=== PATIENT | female | born 1940 | race Two or more races ===

== ENCOUNTER 2016-05-10 10:50 | Emergency (ER) | payer BC, MEDICARE ==
[~2016-05-10] VITALS: Ht 157.5 cm; Wt 61.7 kg
[~2016-05-10 10:50] MED LIST: HYDR-2666 PO; ONDA4TAB10 SL; PROM25TA10 PO; TRAZ50TA15 PO; ZOLP5TAB PO
[2016-05-10 11:09] VITALS: BP 165/107
[2016-05-10] MEDS: ONDANSETRON ODT 4 MG TAB.RAPDIS PO ONE (11:30)
[2016-05-10] MEDS: OXYCODONE/APAP 10/325 TABLET. PO ONE (11:32)
--- NOTE | 2016-05-10 11:53 | RAD ---
Thoracic spine, 3 views, 05/10/2016: History: Fall, pain Comparison is made to a study from 01/05/2015. The bony structures are demineralized. Mild anterior wedging of the T7 vertebral body is unchanged since 01/05/2015. The other thoracic vertebral heights are well-maintained. There is a mild L1 vertebral compression fracture which is new. There are mild scattered marginal spurs. There is aortic atherosclerosis and ectasia. IMPRESSION: 1. Demineralization. 2. Old mild T7 vertebral compression fracture 3. Mild scattered degenerative changes. Lumbar spine, 3 views, 05/10/2016: The bony structures are demineralized. There is a mild L1 vertebral compression fracture which was not present on 01/05/2015. The other lumbar vertebral heights are well-maintained. There is moderate disc space narrowing with a vacuum disc phenomena, endplate sclerosis and marginal spurring at L3-4. There are mild spurs at other scattered disc levels. There are moderate degenerative changes involving the facet joints in the lower lumbar spine. IMPRESSION: 1. Moderate multilevel degenerative change. 2. New mild L1 vertebral compression fracture.
--- NOTE | 2016-05-10 12:10 | RAD ---
Pelvis with both hips, 5 views, 05/10/2016: History: Fall, pain The bony structures are demineralized. No fracture or dislocation is identified. The hip joint spaces are well preserved with only mild marginal spurring. The urinary bladder appears distended. IMPRESSION: 1. Demineralization. 2. No acute bony abnormality is detected.
[2016-05-10] MEDS ORDERED: HYDR-971 PO (12:23)
--- NOTE | 2016-05-10 12:25 | PHYS DOC ---
General Chief Complaint: BACK PAIN OR INJURY Stated Complaint: BACK PAIN Time Seen by MD: 10:54 Source: patient, EMS Exam Limitations: no limitations Problems: History of Present Illness Initial Comments Pt is 75/F to ED via EMS with back pain from fall. Pt states that approx 0400 today she was sleepwalking and fell after walking into a dresser. A 20" flat screen monitor also fell with pt. She c/o upper and lower back pain, no leg/bowel/bladder symptoms, no saddle anesthesia. Pt has chronic back pain and is out of her medications. No prearrival treatment, pain described as severe, worse with movement better with rest. No head trauma/ LOC/SANTO/neck pain. Occurred: this morning Severity: moderate Injuries/Pain Location: back Context: slipped, other Loss of Consciousness: no loss of consciousness Modifying Factors: worse with jarring, worse with movement, improves with rest Associated Symptoms: other Allergies: Coded Allergies: No Known Drug Allergies (Unverified , 10/24/13) Past Medical History Medical History: other (anxiety, depression, HTN, chronic back pain) Surgical History: noncontributory Social History Smoker: non-smoker Alcohol: none Drugs: none Review of Systems Constitutional: denies chills, denies fever, denies malaise Respiratory: denies cough, denies shortness of breath Cardiovascular: denies chest pain, denies palpitations Gastrointestinal: denies diarrhea, denies nausea, denies vomiting Genitourinary: denies dysuria, denies frequency, denies hematuria Musculoskeletal: see HPI Psychiatric/Neurological: denies headache, denies numbness, denies paresthesia , denies tingling, denies weakness Physical Exam General Appearance: WD/WN, no apparent distress Head: no evidence of injury Eyes: bilateral eye EOMI, bilateral eye PERRL, bilateral eye normal inspection Ears, Nose, Mouth, Throat: hearing grossly normal, no evidence of ENT injury, no dental injury Neck: non-tender, full range of motion Cardiovascular/Respiratory: normal peripheral pulses, no respiratory distress Back: no CVA tenderness, decreased range of motion, muscle spasm, vertebral tenderness (upper lumbar, upper thoracic no swell/ecchy) Extremities: normal range of motion, non-tender 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 No hip/pelvis fx. Pt resting comfortably with meds, expressed agreement/understanding with treatment plan. Departure Time of Disposition: 12:23 Disposition: 01 HOME, SELF-CARE Diagnosis: L1 Compression Fracture, mechanical fall Condition: GOOD Patient Instructions: Back, Compression Fracture, Fall Prevention and Home Safety, [id number] Additional Instructions: Rest, no strenuous activity. Ice to painful area 20 minutes, 4-6 times daily for two days. OTC ibuprofen for baseline pain. Rx: norco 5mg #30 Take OTC stool softeners and increase fluid intake to avoid constipation with pain medications. Follow up with your doctor Sunday for recheck. Return to ED with new or changing symptoms. YANIRA MENA DO May 10, 2016 12:25
== END 2016-05-10 13:20 | disposition home or self-care (01) ==
LOC: ER 10:50
DX: S32.010A Wedge compression fracture of first lumbar vertebra, initial encounter for closed fracture (principal); G89.29 Other chronic pain; I10 Essential (primary) hypertension; W20.8XXA Other cause of strike by thrown, projected or falling object, initial encounter; Y93.01 Activity, walking, marching and hiking; Y99.8 Other external cause status; Y92.89 Other specified places as the place of occurrence of the external cause
CPT/HCPCS: 72072; 72100; 73521; 99284; Q0162

== ENCOUNTER 2017-03-02 10:39 | Emergency (ER) | payer MEDICARE, OTHER ==
[~2017-03-02] VITALS: Ht 157.5 cm; Wt 54.4 kg
[~2017-03-02 10:39] MED LIST changes: -HYDR-2666 PO; +HYDR-2758 PO; +HYDR-971 PO
[2017-03-02 10:45] VITALS: BP 165/98
[2017-03-02 11:13] LABS: BASO % 1 % (0-3); EOS # 0.5 x10^3/uL (0.0-0.7); EOS % 8 % (0-3); HEMOGLOBIN 14.3 g/dL (12.0-15.5); LYMPH # 1.6 x10^3/uL (1.0-4.8); LYMPH % 29 % (24-48); MEAN CORPUSCULAR HEMOGLOBIN 33 pg (25-35); MEAN CORPUSCULAR HGB CONC 34 g/dL (31-37); MEAN CORPUSCULAR VOLUME 96 fL (79-100); MONO # 0.3 x10^3/uL (0.0-1.1); MONO % 5 % (0-9); NEUT # 3.2 x10^3uL (1.8-7.7); NEUT % 57 % (31-73); PLATELET COUNT 247 x10^3/uL (140-400); RED CELL DISTRIBUTION WIDTH 13.8 % (11.5-14.5); WHITE BLOOD COUNT 5.6 x10^3/uL (4.0-11.0)
--- NOTE | 2017-03-02 11:19 | RAD ---
CT of the head without contrast, 03/02/2017: History: Altered mental status, accidental overdose Comparison is made to a study from 08/22/2010. There is mild cerebral atrophy. The ventricles are within normal limits in size. There is no shift of the midline structures. There is no evidence of acute intracranial hemorrhage or mass effect. Moderate basal ganglia calcifications are again noted bilaterally. There is partial opacification of both ethmoid sinuses. IMPRESSION: No acute intracranial abnormality is detected. PQRS Compliance Statement: One or more of the following individualized dose reduction techniques were utilized for this examination: 1. Automated exposure control 2. Adjustment of the mA and/or kV according to patient size 3. Use of iterative reconstruction technique
--- NOTE | 2017-03-02 11:25 | RAD ---
Portable chest, 03/02/2017: History: Altered mental status, extending overdose Comparison is made to a study from 01/05/2015. Surgical clips overlie the left lower chest. The heart size and pulmonary vascularity are normal. There is ectasia of the thoracic aorta. There is a 12 mm nodule projected over left upper lobe. It has shown no definite change since 01/05/2015, although comparison of the current AP exam with the previous PA study is not entirely accurate. It is larger than on a prior exam from 2011. There are prominent pulmonary markings laterally in the right lung, apparently due to bronchiectasis and fibrosis evident on a CT exam from 01/26/2010. No pleural fluid is evident. There are internal fixation devices in the right humerus. IMPRESSION: 1. Aortic atherosclerosis and ectasia. 2. Mild bronchiectasis and scarring laterally in the right lung. 3. Left upper lobe pulmonary nodule which has increased in size since 2011.
[2017-03-02] MEDS ORDERED: ONDANSETRON PF 4 MG/2 ML VIAL. IV ONE (11:30)
--- NOTE | 2017-03-02 11:33 | PHYS DOC ---
General Chief Complaint: OVERDOSE Stated Complaint: O.D. Time Seen by MD: 10:50 Source: patient, family, RN/MD, EMS Exam Limitations: no limitations Problems: History of Present Illness Initial Comments Patient is a 76-year-old female brought to the ED by EMS after her PCP called noting the patient appeared to have altered mental status and possible stroke symptoms. EMS reports that on arrival they found the patient to be drowsy but otherwise neurologically intact. They found prescription medication bottles, a Lortab prescription dated February 14 had 5 tablets remaining, quantity 120 tablets. Patient has also run out of trazodone and Ambien 2 weeks early according to the patient's own report. The patient reportedly lives with her son who has been hospitalized for the past 2 days and the second sound has been helping. Due to the patient's persistent complains of whole body pain requesting pain medications and the potential for overdose the patient was brought to the ED for evaluation. ED vital signs stable on arrival, I am familiar with the patient I have seen her here in the past with suspicions of drug seeking behavior. Due to the PCPs concerns full workup initiated and pending. Timing/Duration: unsure Severity: moderate Modifying Factors: worse with medication Associated Symptoms: other Allergies: Coded Allergies: No Known Drug Allergies (Unverified , 10/24/13) Past Medical History Medical History: other (anxiety, depression, hypertension, chronic pain, drug- seeking behavior, prescription medication abuse, opiate dependence and addiction ) Surgical History: other (right humerus fracture) Social History Smoker: non-smoker Alcohol: none Drugs: none Review of Systems Constitutional: denies chills, denies fever, malaise Respiratory: denies cough, denies shortness of breath, denies wheezing Cardiovascular: denies chest pain, denies palpitations, denies syncope Gastrointestinal: denies diarrhea, denies nausea, denies vomiting Musculoskeletal: see HPI Psychiatric/Neurological: see HPI Physical Exam General Appearance: WD/WN, no apparent distress Eyes: bilateral eye normal inspection, bilateral eye PERRL, bilateral eye EOMI Ear, Nose, Throat: hearing grossly normal, normal ENT inspection, normal pharynx Neck: non-tender, supple Respiratory: chest non-tender, normal breath sounds, no respiratory distress Cardiovascular: normal peripheral pulses, regular rate, rhythm Gastrointestinal: non tender, soft Back: no CVA tenderness, no vertebral tenderness 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 Interpreted by me. PATIENT: ANASTACIA RIVERA ACCOUNT: [id number] : 1940 LOCATION: ER AGE: 76 SEX: F EXAM STATUS: REG ER ORD. PHYSICIAN: YANIRA MENA DO REASON: AMS PROCEDURE: PORTABLE CHEST 1V Portable chest, 03/02/2017: History: Altered mental status, extending overdose Comparison is made to a study from 01/05/2015. Surgical clips overlie the left lower chest. The heart size and pulmonary vascularity are normal. There is ectasia of the thoracic aorta. There is a 12 mm nodule projected over left upper lobe. It has shown no definite change since 01/05/2015, although comparison of the current AP exam with the previous PA study is not entirely accurate. It is larger than on a prior exam from 2011. There are prominent pulmonary markings laterally in the right lung, apparently due to bronchiectasis and fibrosis evident on a CT exam from 01/26/2010. No pleural fluid is evident. There are internal fixation devices in the right humerus. IMPRESSION: 1. Aortic atherosclerosis and ectasia. 2. Mild bronchiectasis and scarring laterally in the right lung. 3. Left upper lobe pulmonary nodule which has increased in size since 2011. DICTATED AND SIGNED BY: LOIS FERREIRA MD DATE: 03/02/17 1116 CC: YANIRA MENA DO; CHRISTINE RYAN MD ~ PATIENT: ANASTACIA RIVERA ACCOUNT: [id number] : 1940 LOCATION: ER AGE: 76 SEX: F EXAM STATUS: REG ER ORD. PHYSICIAN: YANIRA MENA DO REASON: AMS PROCEDURE: CT HEAD WO CONTRAST CT of the head without contrast, 03/02/2017: History: Altered mental status, accidental overdose Comparison is made to a study from 08/22/2010. There is mild cerebral atrophy. The ventricles are within normal limits in size. There is no shift of the midline structures. There is no evidence of acute intracranial hemorrhage or mass effect. Moderate basal ganglia calcifications are again noted bilaterally. There is partial opacification of both ethmoid sinuses. IMPRESSION: No acute intracranial abnormality is detected. PQRS Compliance Statement: One or more of the following individualized dose reduction techniques were utilized for this examination: 1. Automated exposure control 2. Adjustment of the mA and/or kV according to patient size 3. Use of iterative reconstruction technique DICTATED AND SIGNED BY: LOIS FERREIRA MD DATE: 03/02/17 1114 CC: YANIRA MENA DO; CHRISTINE RYAN MD ~ 1226: I discussed the patient PCP Dr. Ryan over the phone at her request. After thorough discussion including the fact that the patient had been out of trazodone and Ambien for the past 2 weeks and that 115 of 120 Lortabs had been taken since February 14 Dr. Ryan states that this has been an ongoing issue for the past 3 years. He is in agreement that the patient is stable for discharge home and requests that I advised her she will need to follow-up with him weekly to obtain one week's quantity of medications only each week. He asked that she call and make an appointment later today for an appointment next week. I discussed this with the patient and she did express agreement and understanding. She did continue to ask for a prescription for sleeping pills which I respectfully declined. I advised her to seek help for her addictions and to follow-up with her PCP regarding the lung nodule. Departure Time of Disposition: 12:22 Disposition: 01 HOME, SELF-CARE Diagnosis: noncompliance w/meds, UTI, prescription addic Condition: STABLE Patient Instructions: Drug Abuse and Addiction-[facility] Additional Instructions: Call today to schedule an appointment to see Dr. Ryan next week. Take medications only as prescribed. As discussed you will need to see him weekly to obtain one week's quantity of medications. Prescription: Cephalexin Follow-up with Dr. Ryan next week. Return to ED with new or changing symptoms. YANIRA MENA DO Mar 02, 2017 11:33
[2017-03-02 11:39] LABS: ALBUMIN 4.4 g/dL (3.4-5.0); ALK PHOS 73 U/L (46-116); ALT (SGPT) 15 U/L (14-59); ANION GAP 14 (6-14); AST (SGOT) 18 U/L (15-37); BLOOD UREA NITROGEN 13 mg/dL (7-20); CALCIUM 9.4 mg/dL (8.5-10.1); CARBON DIOXIDE 27 mmol/L (21-32); CHLORIDE 103 mmol/L (98-107); CREATININE 0.6 mg/dL (0.6-1.0); DIRECT BILIRUBIN 0.2 mg/dL (0.0-0.2); GFR 97.7; GLUCOSE 106 mg/dL (70-99); MAGNESIUM 2.3 mg/dL (1.8-2.4); POTASSIUM 3.7 mmol/L (3.5-5.1); SODIUM 144 mmol/L (136-145); TOTAL BILIRUBIN 0.8 mg/dL (0.2-1.0); TOTAL PROTEIN 8.1 g/dL (6.4-8.2)
--- NOTE | 2017-03-02 11:39 | EKG ---
[address] [address] Test Date: 2017-03-02 Test Time: 11:34:56 Pat Name: ANASTACIA RIVERA Department: Room: Gender: F Manager Metrology: AZIZA : 1940 Requested By: YANIRA MENA Order Number: [id number] Reading MD: Measurements Intervals [place] Rate: 73 P: 17 [place]: 194 QRS: -19 QRSD: 86 T: 10 QT: 432 QTc: 480 Interpretive Statements SINUS RHYTHM LEFTWARD AXIS T ABNORMALITY IN ANTERIOR LEADS PROLONGED QT ABNORMAL ECG RI6.01 Unconfirmed report No previous ECG available for comparison
[2017-03-02 11:43] LABS: BARBITURATES NEG (NEG); BENZODIAZEPINES NEG (NEG); CANNABINOIDS NEG (NEG); COCAINE NEG (NEG); METHADONE NEG (NEG); OPIATES POS (NEG); PHENCYCLIDINE NEG (NEG)
[2017-03-02 11:46] LABS: C REACTIVE PROTEIN < 0.5 mg/L (0-3.3)
[2017-03-02 11:47] LABS: ACETAMIN < 2.0 mcg/mL (10-30); ETHANOL < 10 mg/dL (0-10); SALIC 0.7 mg/dL (2.8-20.0)
[2017-03-02 11:48] LABS: BACTERIA,URINE FEW /HPF (0-FEW); BILIRUBIN,URINE NEG (NEG); CLARITY,URINE HAZY; COLOR,URINE YELLOW; GLUCOSE,URINE NEG (NEG); NITRITE,URINE NEG (NEG); RBC,URINE RARE /HPF (0-2); SQUAMOUS EPITHELIAL CELL,UR FEW /LPF; UROBILINOGEN,URINE 0.2 mg/dL (0.2 mg/dL)
[2017-03-02 11:49] LABS: AMPHETAMINE/METHAMPHETAMINE NEG (NEG)
[2017-03-02] MEDS ORDERED: CEPH500C PO (12:28)
== END 2017-03-02 12:38 | disposition home or self-care (01) ==
LOC: ER 10:39
DX: F11.20 Opioid dependence, uncomplicated (principal); F19.20 Other psychoactive substance dependence, uncomplicated; F13.20 Sedative, hypnotic or anxiolytic dependence, uncomplicated; T40.2X5A Adverse effect of other opioids, initial encounter; T42.75XA Adverse effect of unspecified antiepileptic and sedative-hypnotic drugs, initial encounter; Z91.14 Patient's other noncompliance with medication regimen; N39.0 Urinary tract infection, site not specified; F41.9 Anxiety disorder, unspecified; G89.29 Other chronic pain; F31.9 Bipolar disorder, unspecified; Z76.5 Malingerer [conscious simulation]; Y92.89 Other specified places as the place of occurrence of the external cause
CPT/HCPCS: 36415; 70450; 71045; 80048; 80076; 80307; 81001; 83605; 83735; 85025; 85610; 85730; 86140; 87086; 93005; 96374; G0480; J2405; 99285-25; G0479

== ENCOUNTER 2017-03-13 17:10 | Inpatient (IN) | payer MEDICARE, OTHER ==
[~2017-03-13] VITALS: Ht 157.5 cm; Wt 51.5 kg
[~2017-03-13 17:10] MED LIST changes: +CEPH500C PO
--- NOTE | 2017-03-13 18:12 | PHYS DOC ---
Past History Past Medical History: Other Additional Past Medical Histor: anxiety, depression, hypertension, chronic pain , drug-seeking behavior Past Surgical History: Other Additional Past Surgical Histo: right humerus fracture Smoking: Non-smoker Alcohol Use: None Drug Use: None Adult General Chief Complaint Chief Complaint: medical clearance for psych placement [facility] 76-year-old female patient brought in by family members because of depression and needs for [facility]. Patient lost her 49-year- old son last week and was very depressed according to family member. Patient's son states she refused to eat and take her medication. Patient refused to her son when he was sick Hospital and at his . Patient was seen by his primary care physician Dr. Mead and evaluated at [place] emergency room and her primary care physician decided to send patient to this emergency room for psychiatric admission. Patient states she is hurting all over for 2 years and not feeding good and when she doesn't feel good she wished to but she does not have any plan to kill herself. She denies homicidal ideation and hallucination and history of previous suicidal attempt. Review of Systems Review of Systems Constitutional: Denies fever or chills [] Eyes: Denies change in visual acuity, redness, or eye pain [] HENT: Denies nasal congestion or sore throat [] Respiratory: Denies cough or shortness of breath [] Cardiovascular: No additional information not addressed in [facility] [] GI: Denies abdominal pain, nausea, vomiting, bloody stools or diarrhea [] : Denies dysuria or hematuria [] Musculoskeletal: Denies back pain or joint pain [, hurting all over] Integument: Denies rash or skin lesions [] Neurologic: Denies headache, focal weakness or sensory changes [] Endocrine: Denies polyuria or polydipsia [] All other systems were reviewed and found to be within normal limits, except as documented in this note. Allergies Allergies Allergies Coded Allergies Type Severity Reaction Last Updated Verified No Known Drug Allergies 10/24/13 No Physical Exam Physical Exam Constitutional: Well developed, well nourished,mild distress, non-toxic appearance, depressed. [] HENT: Normocephalic, atraumatic, bilateral external ears normal, oropharynx moist, no oral exudates, nose normal. [] Eyes: PERRLA, EOMI, conjunctiva normal, no discharge. [] Neck: Normal range of motion, no tenderness, supple, no stridor. [] Cardiovascular:Heart rate regular rhythm, no murmur [] Lungs & Thorax: Bilateral breath sounds clear to auscultation [] Abdomen: Bowel sounds normal, soft, no tenderness, no masses, no pulsatile masses. [] Skin: Warm, dry, no erythema, no rash. [] Back: No tenderness, no CVA tenderness. [] Extremities: No tenderness, no cyanosis, no clubbing, ROM intact, no edema. [] Neurologic: Alert and oriented X 3, normal motor function, normal sensory function, no focal deficits noted. [] Psychologic: Depressed, judgment normal, avoid of eye contact, no suicidal or homicidal ideation Current Patient Data Vital Signs Vital Signs Date Time Temp Pulse Resp B/P (MAP) Pulse Ox O2 Delivery O2 Flow Rate FiO2 03/13/17 17:30 98.3 74 18 99 Room Air EKG EKG [EKG interpreted by me. EKG at 1810 showed multiple artifact with shaking left axis deviation, left anterior fascicular block, nonspecific T-wave abnormality in anterior leads Radiology/Procedures Radiology/Procedures [] Course & Med Decision Making Course & Med Decision Making Pertinent Labs reviewed. (See chart for details) Evaluation of patient in ER showed 76-year-old female patient brought in to ER by family members because of depression after of her son for medical clearance for psychiatric admission. Patient had unremarkable physical exam except for depression and avoiding of eye contact. Labs showed potassium of 3.0 and mild UTI and patient treated with oral potassium on Bactrim in ER. Patient was evaluated by psychiatric relocation director Dr. Willis and she called at 2133 and a stick patient is inpatient treatment for depression. Plan to [facility]. Dragon Disclaimer Dragon Disclaimer This electronic medical record was generated, in whole or in part, using a voice recognition dictation system. Departure Departure: Impression: Primary Impression: Medical clearance for psychiatric admission Additional Impressions: Depression Hypokalemia UTI (urinary tract infection) Disposition: 09 ADMITTED INPATIENT (At 2134) Condition: IMPROVED Referrals: CHRISTINE MEAD MD (PCP) Problem Qualifiers ANDI ROCHA MD Mar 13, 2017 18:12
--- NOTE | 2017-03-13 18:19 | EKG ---
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
[2017-03-13 19:41] LABS: BASO % 0 % (0-3); EOS # 0.2 x10^3/uL (0.0-0.7); EOS % 3 % (0-3); HEMATOCRIT 42.2 % (36.0-47.0); HEMOGLOBIN 14.4 g/dL (12.0-15.5); LYMPH # 2.2 x10^3/uL (1.0-4.8); LYMPH % 33 % (24-48); MEAN CORPUSCULAR HEMOGLOBIN 32 pg (25-35); MEAN CORPUSCULAR HGB CONC 34 g/dL (31-37); MEAN CORPUSCULAR VOLUME 95 fL (79-100); MONO # 0.5 x10^3/uL (0.0-1.1); MONO % 7 % (0-9); NEUT # 3.9 x10^3uL (1.8-7.7); NEUT % 57 % (31-73); PLATELET COUNT 222 x10^3/uL (140-400); RED BLOOD COUNT 4.45 x10^6/uL (3.50-5.40); RED CELL DISTRIBUTION WIDTH 13.8 % (11.5-14.5); WHITE BLOOD COUNT 6.8 x10^3/uL (4.0-11.0)
[2017-03-13 19:56] LABS: BARBITURATES NEG (NEG); BENZODIAZEPINES NEG (NEG); CANNABINOIDS NEG (NEG); COCAINE NEG (NEG); METHADONE NEG (NEG); OPIATES NEG (NEG); PHENCYCLIDINE NEG (NEG)
[2017-03-13 20:02] LABS: ALBUMIN 4.3 g/dL (3.4-5.0); ALBUMIN/GLOBULIN RATIO 1.1 (1.0-1.7); AMPHETAMINE/METHAMPHETAMINE NEG (NEG); CALCIUM 9.5 mg/dL (8.5-10.1); CREATININE 0.8 mg/dL (0.6-1.0); GFR 70.1; MAGNESIUM 2.1 mg/dL (1.8-2.4); TOTAL BILIRUBIN 0.5 mg/dL (0.2-1.0); TOTAL PROTEIN 8.2 g/dL (6.4-8.2)
[2017-03-13 20:17] LABS: ACETAMIN < 2.0 mcg/mL (10-30); SALIC 1.2 mg/dL (2.8-20.0)
[2017-03-13 20:32] LABS: BILIRUBIN,URINE NEG (NEG); CLARITY,URINE HAZY; COLOR,URINE YELLOW; GLUCOSE,URINE NEG (NEG); NITRITE,URINE NEG (NEG); RBC,URINE RARE /HPF (0-2); UROBILINOGEN,URINE 0.2 mg/dL (0.2 mg/dL)
[2017-03-13 20:33] LABS: BACTERIA,URINE 0 /HPF (0-FEW); HYALINE CASTS, URINE MOD /HPF; SQUAMOUS EPITHELIAL CELL,UR OCC /LPF
[2017-03-13] MEDS ORDERED: SMZ/TMP 800/160MG TABLET. PO ONE (21:00)
[2017-03-13] MEDS ORDERED: ALPRAZolam 0.25 MG TABLET PO ONE (21:00)
[2017-03-14 00:58] VITALS: BP 153/98
[2017-03-14] MEDS ORDERED: METHYL SALICYLATE/MENTHOL TOPICAL OINTMENT 29GM TUBE. TP PRN (01:15)
[2017-03-14] MEDS ORDERED: ONDANSETRON ODT 4 MG TAB.RAPDIS PO PRN (01:15)
[2017-03-14] MEDS ORDERED: PROMETHAZINE 25 MG TABLET. PO PRN (01:15)
[2017-03-14] MEDS ORDERED: HYDROcodone/APAP 5/325MG 1 TAB TABLET PO PRN (01:15)
[2017-03-14] MEDS ORDERED: MAG HYDROX/AL HYDROX/SIMETH 30 ML ORAL.SUSP PO PRN (01:15)
[2017-03-14] MEDS ORDERED: traZODone 50 MG TABLET. PO SCH (02:00)
[2017-03-14 06:00] VITALS: BP 152/99
[2017-03-14] MEDS ORDERED: HYDROcodone/APAP 5/325MG 1 TAB TABLET PO SCH (09:00)
[2017-03-14] MEDS ORDERED: POTASSIUM BICARB 25 MEQ EFFERVESCENT TAB. PO SCH (09:00)
[2017-03-14] MEDS: METOPROLOL TART IMMED RELEASE 25 MG TABLET PO SCH ×2 (09:50→19:50)
[2017-03-14] MEDS: HYDROcodone/APAP 10/325 1 TAB TABLET PO PRN ×2 (09:51→19:50)
[2017-03-14] MEDS: CARBIDOPA/LEVODOPA 25/100MG TABLET PO SCH ×3 (09:51→19:48)
[2017-03-14] MEDS: CITALOPRAM 20 MG TABLET. PO SCH (09:51)
[2017-03-14] MEDS: hydrOXYzine PAMOATE 25 MG CAPSULE PO PRN (15:27)
[2017-03-14 15:58] VITALS: BP 167/90
[2017-03-14] MEDS: CHOLECALCIFEROL (VITAMIN D3) 50,000 UNIT CAPSULE PO SCH (18:35)
[2017-03-14 19:12] LABS: T3 TOTAL 49 ng/dL (71-180); THYROXINE 7.3 ug/dL (4.5-12.0)
[2017-03-14] MEDS: ARIPiprazole 5 MG TABLET PO SCH (19:49)
[2017-03-14] MEDS: GABAPENTIN 300 MG CAPSULE. PO SCH (19:49)
[2017-03-14] MEDS: traZODone 150 MG TABLET. PO SCH (19:49)
[2017-03-14] MEDS: POTASSIUM CHLORIDE 20 MEQ TABLET.ER. PO SCH (19:50)
[2017-03-14] MEDS ORDERED: METOPROLOL TART IMMED RELEASE 25 MG TABLET PO SCH (21:00)
[2017-03-14] MEDS ORDERED: ZOLPIDEM 5 MG TABLET. PO SCH ×2 (21:00)
[2017-03-15 03:10] LABS: HEMOGLOBIN A1C 5.1 % (4.8-5.6)
[2017-03-15 06:05] VITALS: BP 103/70
[2017-03-15] MEDS: ARIPiprazole 5 MG TABLET PO SCH ×2 (09:07→19:50)
[2017-03-15] MEDS: METOPROLOL TART IMMED RELEASE 25 MG TABLET PO SCH ×2 (09:08→19:51)
[2017-03-15] MEDS: POTASSIUM CHLORIDE 20 MEQ TABLET.ER. PO SCH ×3 (09:08→19:51)
[2017-03-15] MEDS: CARBIDOPA/LEVODOPA 25/100MG TABLET PO SCH ×3 (09:08→19:51)
[2017-03-15] MEDS: CITALOPRAM 20 MG TABLET. PO SCH (09:08)
[2017-03-15] MEDS: HYDROcodone/APAP 10/325 1 TAB TABLET PO PRN ×3 (09:18→19:57)
--- NOTE | 2017-03-15 09:28 | PSYEV ---
DATE OF SERVICE: 03/14/2017 REASON FOR ADMISSION: This 76-year-old female who was admitted to [facility] as an inpatient at [facility], at the request of her primary care doctor who evaluated her and was presenting with multiple physical complaints, feeling tired and weak with thoughts of suicide and severely depressed. HISTORY OF PRESENT ILLNESS: The patient apparently lost his son about 4 days ago, was in his 40s. Apparently, he was her caregiver. Apparently, he suddenly due to surgery. The patient states since then she is depressed to the point she does not want to get up. She would rather , but no plans to end her life. The patient stopped eating, not taking her medications. The patient also feeling helpless scared. The patient apparently also verbalized to the staff that she does not want to stay at home because she is afraid she may kill herself. The patient admits to a history of depression in the past, mostly related to her 's several years ago. Apparently she was for almost 22 years. The patient has 3 children. The patient came [place] when she was 24 with the from [place]. The patient was able to do fairly well. 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 The patient has not seen at therapist. Denies of any prior hospitalizations. The patient lately has taken some medications including Ambien at night for sleep. The patient states she cannot sleep without it. The patient also has hydroxyzine 25 mg q.4 hours p.r.n. The patient denies of any alcohol abuse. She does not smoke. The patient also lost about 20 pounds in weight. The patient also has multiple physical complaints, chronic pain. PAST PSYCHIATRIC HISTORY: The patient apparently has not had any psychiatric treatment in the recent past. In the past, she had some intervention, but she is not able to tell us at this time. MEDICATIONS: The patient's medications at the time of admission was trazodone 150 mg at night, gabapentin 300 mg at night, zolpidem 10 mg at night, metoprolol 25 mg b.i.d., hydrocodone 1 tablet q.6 hours p.r.n. The patient apparently had a month's prescription about 120 pills. She finished them in 2 weeks. Apparently, lately she has been abusing them too. The patient is also on Celexa 20 mg daily. The patient is also on carbidopa/levodopa for Parkinson's. PAST MEDICAL HISTORY: The patient has a history of Parkinson's, hypertension, chronic pain, history of falls, tremors of both hands, opioid abuse. Apparently, had a right humeral fracture from fall. ALLERGIES: The patient denies of any allergies. PSYCHOSOCIAL HISTORY: The patient apparently lived in [place] where she was born and raised, has some education, but she is not able to tell. The patient was able to speak fairly good [place]. She came with her when she was 24 years old and they have 3 children and one son recently, that was the major loss and also her approximately 6 years ago, again from heart problems. The patient states she was high functioning. She was able to hold 3 jobs. The patient states she gave up her business several years ago because she could not function, could not handle the pressures. The patient unable to give much information of her past except saying that she had a very good childhood. There is no history of any physical, emotional, or sexual abuse. FAMILY HISTORY: Denies of any depression or suicide in the family. MENTAL STATUS EXAMINATION: The patient appeared to be of stated age, withdrawn, marked constriction of affect, also blunting of affect and able to make eye contact. Her speech is clear, monotone, decreased rate and rhythm. Affect and mood showed she is feeling very depressed, feeling hopeless and helpless, vague thoughts of suicide, no specific plans. The patient is not eating because she is feelings sick all the time. She is hurting all over, lost about 20 pounds in weight. The patient admits to having problems with concentration and thinking. Also not able to motivate herself, feeling hopeless and helpless. Also, fearful because her son was her caregiver. The patient currently not admitting to any psychotic symptoms. The patient apparently had frequent falls, probably related to her abuse of opioids. She is oriented to time, place and person. Her memory is intact for both past and present. Judgment fair. Insight limited. STRENGTHS: Fairly in good health in spite of her Parkinson's. Supportive family. WEAKNESSES: The patient is currently depressed to the point she is not able to make any decisions. Also, she is not eating. DIAGNOSTIC IMPRESSION: AXIS I: 1. Major depression, single episode, severe without psychotic symptoms. 2. Generalized anxiety disorder, unspecified. AXIS II: None. AXIS III: Parkinson's, hypertension, history of falls. INITIAL TREATMENT PLAN: The patient will be under observation. The patient will continue on her current medications. We will try to taper her Ambien. We will consider increasing her Celexa for complete lab work. Currently, she is on 20 mg daily. The patient will be seen daily by the psychiatrist. The patient will be encouraged to attend all the activities. LENGTH OF STAY: 7-10 days. DISCHARGE CRITERIA: The patient is able to maintain some improvement including able to sleep, able to eat, not having any negative thoughts. MONY ORTIZ MD DR: OCTAVIO/dereck JOB#: [id number] / [id number]
[2017-03-15] MEDS: hydrOXYzine PAMOATE 25 MG CAPSULE PO PRN ×2 (10:23→14:04)
--- NOTE | 2017-03-15 10:27 | CONS ---
DATE OF CONSULTATION: 03/14/2017 REASON FOR CONSULTATION: Medical management. HISTORY OF PRESENT ILLNESS: The patient is a 76-year-old female of [place] descent, who was brought by her family members because of depression and need for to be admitted to [facility]. She has lost her 49-year-old son last week and is very depressed according to her family members. The patient's son states she has refused to eat and drink her medication. She refused to go to her son when he was sick at the hospital or at his and she was evaluated by Dr. Mead, her primary care physician, and was seen at [facility] and her primary care physician decided to send the patient for psychiatric admission. She said that she is hurting all over for 2 years, and which she does not feel good, she wished to . She does not have any plans to kill herself. On questioning her, she continued to insist she will not accept this and if she has not believed in God, she would have killed herself. PAST MEDICAL HISTORY: Significant for, she has history of hypertension as well as Parkinson's disease. PAST SURGICAL HISTORY: Significant for back surgery and left foot surgery, bilateral cataract extraction. ALLERGIES: She has no known drug allergies. MEDICATIONS: She is currently on aripiprazole for Abilify 2.5 mg twice a day, trazodone 150 mg at bedtime, gabapentin 300 mg at bedtime, Ambien 10 mg at bedtime, hydroxyzine pamoate for Vistaril 25 mg every 4 hours, metoprolol tartrate 25 mg twice a day, hydrocodone/APAP 10/325 one tablet every 6 hours, citalopram hydrobromide for Celexa 20 mg once a day, carbidopa/levodopa 25/100 three times a day, ondansetron oral disintegrating tablet 4 mg every 8 hours, magnesium hydroxide for milk of magnesia 30 mL p.o. daily p.r.n. for constipation, acetaminophen 650 mg every 6 hours as needed. FAMILY HISTORY: She has 7 brothers, scattered all over the [place] according to her. Both her parents are . She has 3 sons, her eldest son last week of a heart attack. SOCIAL HISTORY: She does not smoke or drink alcohol. 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 PHYSICAL EXAMINATION: GENERAL: When I examined her this afternoon, she was resting slightly propped up in bed, in no apparent respiratory distress. There was no pallor, jaundice, cyanosis, or thyromegaly. No jugular venous distension. No limb edema. VITAL SIGNS: Her heart rate was 72, blood pressure was 167/90, temperature was 97.8, respiratory rate was 19 and oxygen saturation was 96%. HEAD, EYES, EARS, NOSE, AND THROAT: Shows normocephalic, atraumatic. NECK: Supple. HEART: Showed normal first and second heart sounds with no gallop, rub or murmur. CHEST: Clear to auscultation. No crepitation or rhonchi. ABDOMEN: Distended, soft, nontender. No guarding or rigidity. No organomegaly. All hernial orifice intact. Bowel sounds normal. NEUROLOGIC: She was awake, alert, responding appropriately. Cranial nerves intact. Her voice is slow, monotonous. She has features consistent with Parkinson disease with the tremors seemed to be more prominent in her right upper extremity; however, she is able to move her extremities without difficulty. LABORATORY DATA: Showed a white cell count of 6800, hemoglobin 14.4, hematocrit 42, MCV 95 and platelet count 222,000. Her chemistry showed a serum sodium 142, potassium 3, chloride 102, bicarbonate 24, anion gap of 16, BUN of 11, creatinine 0.8, estimated GFR was 70 mL per minute. Her glucose 94, calcium was 9.5, magnesium 2.1. Total bilirubin, AST, ALT, alkaline phosphatase are normal. Her total protein 8.2, albumin 4.3. Her serum iron was 59, TIBC was ____. Her triglycerides were 102. Total cholesterol 252, LDL was 189, VLDL was 20, and HDL cholesterol of 43. Serum vitamin B12 was 639. A 25-hydroxy vitamin D was 88.2. TSH was 0.522. Urinalysis was essentially unremarkable and toxic screen was negative. IMPRESSION: In summary, this is a 76-year-old female of [place] descent who came in with severe depression, following the of her eldest son who was 49 years old. She does not have any plans to kill herself. She has multiple medical problems including hypertension, Parkinson's disease, vitamin D deficiency, and hypokalemia. PLAN: My plan is to start her on ergocalciferol 50,000 international units once a week. We will replenish her potassium. We will monitor her blood pressure that seemed to be slightly elevated today. She is on Sinemet. We will get PT, OT to work with her and if she needs adjustment, we will consult Dr. Cleary to evaluate her. FAISAL ELIZABETH MD DR: IRINA/dereck JOB#: [id number] / [id number]
[2017-03-15] MEDS: MAGNESIUM HYDROXIDE 2,400 MG/30 ML ORAL.SUSP. PO PRN (12:14)
[2017-03-15 16:01] VITALS: BP 124/85
[2017-03-15] MEDS: GABAPENTIN 300 MG CAPSULE. PO SCH (19:50)
[2017-03-15] MEDS: traZODone 150 MG TABLET. PO SCH (19:51)
[2017-03-15] MEDS: ZOLPIDEM 5 MG TABLET. PO PRN (19:57)
[2017-03-16 06:11] VITALS: BP 118/69
[2017-03-16] MEDS: HYDROcodone/APAP 10/325 1 TAB TABLET PO PRN ×3 (09:09→20:29)
[2017-03-16] MEDS: POTASSIUM CHLORIDE 20 MEQ TABLET.ER. PO SCH ×3 (09:10→19:43)
[2017-03-16] MEDS: ARIPiprazole 5 MG TABLET PO SCH ×2 (09:10→19:42)
[2017-03-16] MEDS: METOPROLOL TART IMMED RELEASE 25 MG TABLET PO SCH ×2 (09:11→19:44)
[2017-03-16] MEDS: CARBIDOPA/LEVODOPA 25/100MG TABLET PO SCH ×3 (09:11→19:43)
[2017-03-16] MEDS: CITALOPRAM 20 MG TABLET. PO SCH (09:13)
--- NOTE | 2017-03-16 09:50 | PN ---
DATE: 03/15/2017 SUBJECTIVE: The patient was seen today, met with the staff, chart reviewed and also reviewed the treatment plan. Manager Of Photography spoke with the patient's son to get more information. The patient apparently did not share anything about her past. Prior to coming to [facility], it is not clear whether the patient had any trauma in the past. The patient is known to abuse opioids in the past. The patient also spent 10 days as an inpatient on a psych unit about 15 years ago following an overdose of narcotics. The patient was twice and both husbands . OBSERVATION: VITAL SIGNS: Temperature 97.2, blood pressure 103/70, pulse 64, respirations 16, O2 sat 96%. Slept about 7 hours last night. The patient's behavior remains the same. She stays in bed with marked psychomotor retardation and also has some hand tremors. The patient is still very depressed. LABORATORY DATA: The patient's lab reviewed. Her hemoglobin A1c was 5.1. The patient's cholesterol 252, LDL 189, and, non-HDL cholesterol 209, HDL cholesterol 43. The patient's urinalysis was within normal range. The patient's RPR was nonreactive. MEDICATIONS: The patient's current medication includes Celexa was increased to 40 mg daily. The patient is still on zolpidem 10 mg at night p.r.n., Abilify 2.5 mg b.i.d., trazodone 150 mg at night, Gabapentin 300 mg at night. The patient is also on metoprolol, carbidopa/levodopa. The patient is not having any side effects. The patient is not presenting with any major physical complaints. ASSESSMENT: Major depression, single episode, severe without psychotic features, though generalized anxiety disorder. PLAN: To continue with the treatment. The patient is encouraged to attend all the activities. The patient also encouraged to talk about losing her son 3 months ago. MONY ORTIZ MD DR: OCTAVIO/dereck JOB#: [id number] / [id number]
[2017-03-16] MEDS: hydrOXYzine PAMOATE 25 MG CAPSULE PO PRN (11:46)
[2017-03-16 15:26] VITALS: BP 138/88
[2017-03-16] MEDS: traZODone 150 MG TABLET. PO SCH (19:42)
[2017-03-16] MEDS: GABAPENTIN 300 MG CAPSULE. PO SCH (19:43)
[2017-03-17 06:14] VITALS: BP 125/70
[2017-03-17] MEDS: HYDROcodone/APAP 10/325 1 TAB TABLET PO PRN ×2 (06:42→12:43)
[2017-03-17] MEDS: ARIPiprazole 5 MG TABLET PO SCH ×2 (08:41→19:53)
[2017-03-17] MEDS: POTASSIUM CHLORIDE 20 MEQ TABLET.ER. PO SCH ×3 (08:42→19:52)
[2017-03-17] MEDS: CITALOPRAM 20 MG TABLET. PO SCH (08:42)
[2017-03-17] MEDS: CARBIDOPA/LEVODOPA 25/100MG TABLET PO SCH ×3 (08:44→19:52)
[2017-03-17] MEDS: METOPROLOL TART IMMED RELEASE 25 MG TABLET PO SCH ×2 (08:44→19:53)
[2017-03-17] MEDS: MAGNESIUM HYDROXIDE 2,400 MG/30 ML ORAL.SUSP. PO PRN (08:45)
[2017-03-17] MEDS: hydrOXYzine PAMOATE 25 MG CAPSULE PO PRN (10:16)
[2017-03-17 15:57] VITALS: BP 118/69
[2017-03-17] MEDS: GABAPENTIN 300 MG CAPSULE. PO SCH (19:52)
[2017-03-17] MEDS: traZODone 150 MG TABLET. PO SCH (19:53)
[2017-03-17] MEDS: ZOLPIDEM 5 MG TABLET. PO PRN (21:05)
[2017-03-18 06:12] VITALS: BP 102/69
[2017-03-18] MEDS: CITALOPRAM 20 MG TABLET. PO SCH (08:13)
[2017-03-18] MEDS: ARIPiprazole 5 MG TABLET PO SCH ×2 (08:13→21:15)
[2017-03-18] MEDS: POTASSIUM CHLORIDE 20 MEQ TABLET.ER. PO SCH ×3 (08:14→20:53)
[2017-03-18] MEDS: CARBIDOPA/LEVODOPA 25/100MG TABLET PO SCH ×3 (08:14→20:53)
[2017-03-18] MEDS: HYDROcodone/APAP 10/325 1 TAB TABLET PO PRN ×2 (08:15→15:23)
[2017-03-18] MEDS: METOPROLOL TART IMMED RELEASE 25 MG TABLET PO SCH ×2 (09:00→20:53)
[2017-03-18 09:42] LABS: BASO % 0 % (0-3); EOS # 0.3 x10^3/uL (0.0-0.7); EOS % 6 % (0-3); HEMATOCRIT 38.4 % (36.0-47.0); HEMOGLOBIN 13.3 g/dL (12.0-15.5); LYMPH # 1.4 x10^3/uL (1.0-4.8); LYMPH % 33 % (24-48); MEAN CORPUSCULAR HEMOGLOBIN 33 pg (25-35); MEAN CORPUSCULAR HGB CONC 35 g/dL (31-37); MEAN CORPUSCULAR VOLUME 95 fL (79-100); MONO # 0.3 x10^3/uL (0.0-1.1); MONO % 7 % (0-9); NEUT # 2.3 x10^3uL (1.8-7.7); NEUT % 54 % (31-73); PLATELET COUNT 181 x10^3/uL (140-400); RED BLOOD COUNT 4.03 x10^6/uL (3.50-5.40); RED CELL DISTRIBUTION WIDTH 14.1 % (11.5-14.5); WHITE BLOOD COUNT 4.3 x10^3/uL (4.0-11.0)
[2017-03-18 09:52] LABS: ALBUMIN 3.8 g/dL (3.4-5.0); CALCIUM 9.1 mg/dL (8.5-10.1); CREATININE 0.7 mg/dL (0.6-1.0); GFR 81.8; TOTAL BILIRUBIN 0.5 mg/dL (0.2-1.0); TOTAL PROTEIN 7.5 g/dL (6.4-8.2)
[2017-03-18 09:58] LABS: POTASSIUM 4.7 mmol/L (3.5-5.1)
[2017-03-18] MEDS: hydrOXYzine PAMOATE 25 MG CAPSULE PO PRN (11:05)
[2017-03-18 16:21] VITALS: BP 145/88
--- NOTE | 2017-03-18 20:05 | PDOC ---
Exam Note: Erwin Note: Please also refer to the separate dictated note~for this date of service dictated separately.~Patient seen individually. Discussed the patient with Nursing staff reviewed the chart.~Reviewed interim history and current functioning. Reviewed vital signs,~Labs/ Radiology~and current medications noted below. Continue current treatment with the changes noted in the dictated addendum note Assessment: Vital Signs: Vital Signs Date Time Temp Pulse Resp B/P (MAP) Pulse Ox O2 Delivery O2 Flow Rate FiO2 03/18/17 16:23 18 03/18/17 16:21 97.6 93 145/88 (107) 97 03/18/17 06:12 Room Air I&O Intake and Output 03/18/17 07:00 Intake Total 1200 ml Balance 1200 ml Intake Oral 1200 ml Labs: Laboratory Tests Test 03/18/17 09:20 White Blood Count 4.3 x10^3/uL (4.0-11.0) Red Blood Count 4.03 x10^6/uL (3.50-5.40) Hemoglobin 13.3 g/dL (12.0-15.5) Hematocrit 38.4 % (36.0-47.0) Mean Corpuscular Volume 95 fL (79-100) Mean Corpuscular Hemoglobin 33 pg (25-35) Mean Corpuscular Hemoglobin Concent 35 g/dL (31-37) Red Cell Distribution Width 14.1 % (11.5-14.5) Platelet Count 181 x10^3/uL (140-400) Neutrophils (%) (Auto) 54 % (31-73) Lymphocytes (%) (Auto) 33 % (24-48) Monocytes (%) (Auto) 7 % (0-9) Eosinophils (%) (Auto) 6 % (0-3) H Basophils (%) (Auto) 0 % (0-3) Neutrophils # (Auto) 2.3 x10^3uL (1.8-7.7) Lymphocytes # (Auto) 1.4 x10^3/uL (1.0-4.8) Monocytes # (Auto) 0.3 x10^3/uL (0.0-1.1) Eosinophils # (Auto) 0.3 x10^3/uL (0.0-0.7) Basophils # (Auto) 0.0 x10^3/uL (0.0-0.2) Sodium Level 140 mmol/L (136-145) Potassium Level 4.7 mmol/L (3.5-5.1) Chloride Level 103 mmol/L (98-107) Carbon Dioxide Level 30 mmol/L (21-32) Anion Gap 7 (6-14) Blood Urea Nitrogen 10 mg/dL (7-20) Creatinine 0.7 mg/dL (0.6-1.0) Estimated GFR (Cockcroft-Gault) 81.8 BUN/Creatinine Ratio 14 (6-20) Glucose Level 153 mg/dL (70-99) H Calcium Level 9.1 mg/dL (8.5-10.1) Total Bilirubin 0.5 mg/dL (0.2-1.0) Aspartate Amino Transferase (AST) 28 U/L (15-37) Alanine Aminotransferase (ALT) 10 U/L (14-59) L Alkaline Phosphatase 77 U/L (46-116) Total Protein 7.5 g/dL (6.4-8.2) Albumin 3.8 g/dL (3.4-5.0) Albumin/Globulin Ratio 1.0 (1.0-1.7) Current Medications: Meds: Current Medications Potassium Bicarbonate (Klyte/Cl) 25 meq DAILY PO ; Start 03/14/17 at 09:00; Stop 03/14/17 at 09:33; Status DC Alprazolam (Xanax) 0.5 mg 1X ONCE PO Last administered on 03/13/17at 21:56; Start 03/13/17 at 21:00; Stop 03/13/17 at 21:01; Status DC Trimethoprim/ Sulfamethoxazole (Bactrim Ds) 1 tab 1X ONCE PO Last administered on 03/13/17at 21:55; Start 03/13/17 at 21:00; Stop 03/13/17 at 21:01 ; Status DC Acetaminophen (Tylenol) 650 mg PRN Q6HRS PRN PO PAIN / TEMP; Start 03/14/17 at 01:15 Multi-Ingredient Ointment (Analgesic [place]) 1 mathew PRN QID PRN TP MUSCLE PAIN; Start 03/14/17 at 01:15 Al Hydroxide/Mg Hydroxide (Mylanta Plus Xs) 15 ml PRN AFTMEALHC PRN PO DYSPEPSIA; Start 03/14/17 at 01:15 Magnesium Hydroxide (Milk Of Magnesia) 2,400 mg PRN QHS PRN PO CONSTIPATION Last administered on 03/17/17at 08:45; Start 03/14/17 at 01:15 Acetaminophen/ Hydrocodone Bitart (Lortab 5/325) 1 tab TID PO ; Start 03/14/17 at 09:00; Stop 03/14/17 at 09:33; Status DC Acetaminophen/ Hydrocodone Bitart (Lortab 5/325) 1 tab PRN Q6HRS PRN PO PAIN; Start 03/14/17 at 01:15; Stop 03/14/17 at 09:33; Status DC Ondansetron HCl (Zofran Odt) 4 mg PRN Q8HRS PRN PO NAUSEA; Start 03/14/17 at 01 :15 Promethazine HCl (Phenergan) 25 mg PRN Q6HRS PRN PO NAUSEA; Start 03/14/17 at 01:15; Stop 03/14/17 at 09:33; Status DC Trazodone HCl (Desyrel) 50 mg QHS PO Last administered on 03/14/17at 02:11; Start 03/14/17 at 02:00; Stop 03/14/17 at 09:33; Status DC Zolpidem Tartrate (Ambien) 5 mg QHS PO ; Start 03/14/17 at 21:00; Stop 03/14/17 at 21:00; Status DC Zolpidem Tartrate (Ambien) 10 mg QHS PO Last administered on 03/14/17at 19:49; Start 03/14/17 at 21:00; Stop 03/15/17 at 07:09; Status DC Carbidopa/Levodopa (Sinemet 25/100) 1 tab TID PO Last administered on 03/18/17at 13:38; Start 03/14/17 at 09:30 Citalopram Hydrobromide (CeleXA) 20 mg DAILY PO Last administered on 03/15/17at 09:08; Start 03/14/17 at 09:30; Stop 03/15/17 at 15:04; Status DC Gabapentin (Neurontin) 300 mg QHS PO Last administered on 03/17/17at 19:52; Start 03/14/17 at 21:00 Acetaminophen/ Hydrocodone Bitart (Lortab 10/325) 1 tab PRN Q6HRS PRN PO PAIN Last administered on 03/18/17 15:23; Start 03/14/17 at 09:30 Metoprolol Tartrate (Lopressor) 25 mg BID PO ; Start 03/14/17 at 21:00; Stop at 21:00; Status DC Trazodone HCl (Desyrel) 150 mg QHS PO Last administered on 03/17/17 19:53; Start 03/14/17 at 21:00 Metoprolol Tartrate (Lopressor) 25 mg BID PO Last administered on 03/17/17 19: 53; Start 03/14/17 at 09:45 Aripiprazole (Abilify) 2.5 mg BID PO Last administered on 03/18/17 08:13; Start 03/14/17 at 21:00 Hydroxyzine Pamoate (Vistaril) 25 mg PRN Q4HRS PRN PO ANXIETY Last administered on 03/18/17 11:05; Start 03/14/17 at 15:15 Vitamin D (Vitamin D3) 50,000 unit WEEKLY PO Last administered on 03/14/17at 18: 35; Start 03/14/17 at 18:00 Potassium Chloride (Klor-Con) 20 meq TID PO Last administered on 03/18/17 13:38 ; Start 03/14/17 at 21:00 Zolpidem Tartrate (Ambien) 10 mg PRN QHS PRN PO INSOMNIA Last administered on 21:05; Start 03/15/17 at 21:00 Citalopram Hydrobromide (CeleXA) 40 mg DAILY PO Last administered on 03/18/17 08:13; Start 03/16/17 at 09:00 Active Scripts Active [place] 5-325 Tablet (Hydrocodone Bit/Acetaminophen) 1 Each Tablet 1 Tab PO Q4- 6HRS PRN Zofran Odt (Ondansetron) 4 Mg Tab.rapdis 1 Tab SL Q8HRS PRN Promethazine Hcl 25 Mg Tablet 1 Tab PO PRN Q6HRS PRN Reported Ambien (Zolpidem Tartrate) 5 Mg Tablet 1 Tab PO QHS Hydrocodone-Apap 5-325 (Hydrocodone Bit/Acetaminophen) 1 Each Tablet 1 Tab PO TID Trazodone Hcl 50 Mg Tablet 1 Tab PO QHS I have reviewed the current psychotropics carefully including drug interactions. Risk benefit ratio favors no change other than as noted in my dictated progress note. 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
[2017-03-18] MEDS: ZOLPIDEM 5 MG TABLET. PO PRN (20:52)
[2017-03-18] MEDS: traZODone 150 MG TABLET. PO SCH (20:53)
[2017-03-18] MEDS: GABAPENTIN 300 MG CAPSULE. PO SCH (20:53)
[2017-03-19] MEDS ORDERED: ARIP5TAB13 PO (03:12)
[2017-03-19] MEDS ORDERED: CARB1TAB2 PO (03:12)
[2017-03-19] MEDS ORDERED: CHOL500050 PO (03:13)
[2017-03-19] MEDS ORDERED: DULO30CA2 PO (03:14)
[2017-03-19] MEDS ORDERED: DULO60CA6 PO (03:16)
[2017-03-19] MEDS ORDERED: GABA-586 PO (03:17)
[2017-03-19] MEDS ORDERED: METO25TA4 PO (03:19)
[2017-03-19] MEDS ORDERED: ONDA4TAB10 PO (03:22)
[2017-03-19] MEDS ORDERED: POTA20TA4 PO (03:23)
[2017-03-19] MEDS ORDERED: HYDR25CA75 PO (03:26)
[2017-03-19] MEDS ORDERED: TRAZ150T49 PO (03:27)
[2017-03-19 06:07] VITALS: BP 100/71
--- NOTE | 2017-03-19 08:07 | PN ---
DATE: 03/16/2017 SUBJECTIVE: The patient was seen today, met with the staff, chart reviewed. Staff reports no major problems except she tends to stay in bed, most of the time. The patient usually goes for lunch and dinner. The patient somewhat withdrawn, not wanting to participate in activities. She is also complaining of chronic pain. OBSERVATION: VITAL SIGNS: Temperature 97.2, blood pressure 118/69, pulse 61, respirations 16, O2 sat 93%. Slept about 8 hours last night. The patient is not presenting with any other physical problems except for hand tremors. MEDICATIONS: The patient's medications include Celexa 40 mg daily, zolpidem 10 mg at night p.r.n., Abilify 2.5 mg b.i.d. and trazodone 150 mg at night and gabapentin 300 mg at night. The patient is also on carbidopa/levodopa. ASSESSMENT: Major depression, single episode, severe without psychotic symptoms, generalized anxiety disorder. PLAN: To continue with the treatment. MONY ORTIZ MD DR: OCTAVIO/dereck JOB#: [id number] / [id number]
[2017-03-19] MEDS: ARIPiprazole 5 MG TABLET PO SCH ×2 (08:57→20:42)
[2017-03-19] MEDS: CARBIDOPA/LEVODOPA 25/100MG TABLET PO SCH ×3 (08:57→20:44)
[2017-03-19] MEDS: POTASSIUM CHLORIDE 20 MEQ TABLET.ER. PO SCH ×3 (08:57→20:42)
[2017-03-19] MEDS: METOPROLOL TART IMMED RELEASE 25 MG TABLET PO SCH ×2 (08:58→20:44)
[2017-03-19] MEDS: DULoxetine HCL 30 MG CAPSULE.DR PO SCH (08:59)
[2017-03-19] MEDS: HYDROcodone/APAP 10/325 1 TAB TABLET PO PRN ×3 (09:00→20:43)
[2017-03-19] MEDS: hydrOXYzine PAMOATE 25 MG CAPSULE PO PRN (11:30)
[2017-03-19] MEDS: ACETAMINOPHEN 325 MG TABLET PO PRN (13:03)
[2017-03-19] MEDS: MAGNESIUM HYDROXIDE 2,400 MG/30 ML ORAL.SUSP. PO PRN (15:35)
[2017-03-19 16:25] VITALS: BP 116/81
[2017-03-19] MEDS: GABAPENTIN 300 MG CAPSULE. PO SCH (20:42)
[2017-03-19] MEDS: ZOLPIDEM 5 MG TABLET. PO PRN (20:42)
[2017-03-19] MEDS: traZODone 150 MG TABLET. PO SCH (20:44)
--- NOTE | 2017-03-19 21:18 | PDOC ---
Exam Note: Erwin Note: Please also refer to the separate dictated note~for this date of service dictated separately.~Patient seen individually. Discussed the patient with Nursing staff reviewed the chart.~Reviewed interim history and current functioning. Reviewed vital signs,~Labs/ Radiology~and current medications noted below. Continue current treatment with the changes noted in the dictated addendum note Assessment: Vital Signs: Vital Signs Date Time Temp Pulse Resp B/P (MAP) Pulse Ox O2 Delivery O2 Flow Rate FiO2 03/19/17 20:44 93 116/81 03/19/17 20:43 Room Air 03/19/17 16:25 98.1 16 100 I&O Intake and Output 03/19/17 07:00 Intake Total 840 ml Balance 840 ml Intake Oral 840 ml # Voids 1 Current Medications: Meds: Current Medications Potassium Bicarbonate (Klyte/Cl) 25 meq DAILY PO ; Start 03/14/17 at 09:00; Stop 03/14/17 at 09:33; Status DC Alprazolam (Xanax) 0.5 mg 1X ONCE PO Last administered on 03/13/17at 21:56; Start 03/13/17 at 21:00; Stop 03/13/17 at 21:01; Status DC Trimethoprim/ Sulfamethoxazole (Bactrim Ds) 1 tab 1X ONCE PO Last administered on 03/13/17at 21:55; Start 03/13/17 at 21:00; Stop 03/13/17 at 21:01 ; Status DC Acetaminophen (Tylenol) 650 mg PRN Q6HRS PRN PO PAIN / TEMP Last administered on 03/19/17at 13:03; Start 03/14/17 at 01:15 Multi-Ingredient Ointment (Analgesic [place]) 1 mathew PRN QID PRN TP MUSCLE PAIN; Start 03/14/17 at 01:15 Al Hydroxide/Mg Hydroxide (Mylanta Plus Xs) 15 ml PRN AFTMEALHC PRN PO DYSPEPSIA; Start 03/14/17 at 01:15 Magnesium Hydroxide (Milk Of Magnesia) 2,400 mg PRN QHS PRN PO CONSTIPATION Last administered on 03/19/17at 15:35; Start 03/14/17 at 01:15 Acetaminophen/ Hydrocodone Bitart (Lortab 5/325) 1 tab TID PO ; Start 03/14/17 at 09:00; Stop 03/14/17 at 09:33; Status DC Acetaminophen/ Hydrocodone Bitart (Lortab 5/325) 1 tab PRN Q6HRS PRN PO PAIN; Start 03/14/17 at 01:15; Stop 03/14/17 at 09:33; Status DC Ondansetron HCl (Zofran Odt) 4 mg PRN Q8HRS PRN PO NAUSEA; Start 03/14/17 at 01 :15 Promethazine HCl (Phenergan) 25 mg PRN Q6HRS PRN PO NAUSEA; Start 03/14/17 at 01:15; Stop 03/14/17 at 09:33; Status DC Trazodone HCl (Desyrel) 50 mg QHS PO Last administered on 03/14/17at 02:11; Start 03/14/17 at 02:00; Stop 03/14/17 at 09:33; Status DC Zolpidem Tartrate (Ambien) 5 mg QHS PO ; Start 03/14/17 at 21:00; Stop 03/14/17 at 21:00; Status DC Zolpidem Tartrate (Ambien) 10 mg QHS PO Last administered on 03/14/17at 19:49; Start 03/14/17 at 21:00; Stop 03/15/17 at 07:09; Status DC Carbidopa/Levodopa (Sinemet 25/100) 1 tab TID PO Last administered on 03/19/17at 20:44; Start 03/14/17 at 09:30 Citalopram Hydrobromide (CeleXA) 20 mg DAILY PO Last administered on 03/15/17at 09:08; Start 03/14/17 at 09:30; Stop 03/15/17 at 15:04; Status DC Gabapentin (Neurontin) 300 mg QHS PO Last administered on 03/19/17at 20:42; Start 03/14/17 at 21:00 Acetaminophen/ Hydrocodone Bitart (Lortab 10/325) 1 tab PRN Q6HRS PRN PO PAIN Last administered on 03/19/17at 20:43; Start 03/14/17 at 09:30 Metoprolol Tartrate (Lopressor) 25 mg BID PO ; Start 03/14/17 at 21:00; Stop at 21:00; Status DC Trazodone HCl (Desyrel) 150 mg QHS PO Last administered on 03/19/17 20:44; Start 03/14/17 at 21:00 Metoprolol Tartrate (Lopressor) 25 mg BID PO Last administered on 03/19/17 20: 44; Start 03/14/17 at 09:45 Aripiprazole (Abilify) 2.5 mg BID PO Last administered on 03/19/17 20:42; Start 03/14/17 at 21:00 Hydroxyzine Pamoate (Vistaril) 25 mg PRN Q4HRS PRN PO ANXIETY Last administered on 03/19/17 11:30; Start 03/14/17 at 15:15 Vitamin D (Vitamin D3) 50,000 unit WEEKLY PO Last administered on 03/14/17 18: 35; Start 03/14/17 at 18:00 Potassium Chloride (Klor-Con) 20 meq TID PO Last administered on 03/19/17 20:42 ; Start 03/14/17 at 21:00 Zolpidem Tartrate (Ambien) 10 mg PRN QHS PRN PO INSOMNIA Last administered on 20:42; Start 03/15/17 at 21:00 Citalopram Hydrobromide (CeleXA) 40 mg DAILY PO Last administered on 03/18/17 08:13; Start 03/16/17 at 09:00; Stop 03/18/17 at 21:44; Status DC Duloxetine HCl (Cymbalta) 30 mg DAILY PO Last administered on 03/19/17at 08:59; Start 03/19/17 at 09:00; Stop 03/20/17 at 09:01 Duloxetine HCl (Cymbalta) 60 mg DAILY PO ; Start 03/21/17 at 09:00 Active Scripts Active Reported Trazodone Hcl 150 Mg Tablet 150 Mg PO QHS Hydroxyzine Pamoate 25 Mg Capsule 25 Mg PO PRN Q4HRS PRN Klor-Con M20 (Potassium Chloride) 20 Meq Tab.er.prt 20 Meq PO TID Zofran Odt (Ondansetron) 4 Mg Tab.rapdis 4 Mg PO PRN Q8HRS PRN Metoprolol Tartrate 25 Mg Tablet 25 Mg PO BID Neurontin (Gabapentin) 300 Mg Capsule 300 Mg PO QHS Cymbalta (Duloxetine Hcl) 60 Mg Capsule.dr 60 Mg PO DAILY Cymbalta (Duloxetine Hcl) 30 Mg Capsule.dr 30 Mg PO DAILY 2 Days Vitamin D3 (Cholecalciferol (Vitamin D3)) 50,000 Unit Capsule 50,000 Unit PO WEEKLY Sinemet 25-100 Mg Tablet (Carbidopa/Levodopa) 1 Each Tablet 1 Tab PO TID Abilify (Aripiprazole) 5 Mg Tablet 2.5 Mg PO BID Ambien (Zolpidem Tartrate) 5 Mg Tablet 1 Tab PO QHS Hydrocodone-Apap 5-325 (Hydrocodone Bit/Acetaminophen) 1 Each Tablet 1 Tab PO TID Trazodone Hcl 50 Mg Tablet 1 Tab PO QHS I have reviewed the current psychotropics carefully including drug interactions. Risk benefit ratio favors no change other than as noted in my dictated progress note. Diagnosis: Problems: (1) Depression (2) Major depressive disorder, recurrent episode (3) PSYCHOTIC DISORDER W DELUSIONS DUE TO KNOWN PHYSIOL COND (4) Anxiety disorder (5) Wrist fracture, right RAHEEM FOY MD Mar 19, 2017 21:18
--- NOTE | 2017-03-20 04:43 | PN ---
DATE: 03/18/2017 This late entry 03/18/2017 covers elements not covered in my initial note 03/18/2017. The patient is seen individually evening of 03/18/2017 and reviewed information from Dr. Mart, who had covered for me over the past few days. The patient has been withdrawn, depressed. Denies active suicidal ideation, but still hopeless, somewhat overwhelmed with the unexpected of her 49-year-old son. She is quite irritable at times refusing to answer questions as I met with her. REVIEW OF SYSTEMS: No CV, , pulmonary, eye system symptoms on review. MENTAL STATUS EXAM: Oriented to herself and situation. Speech is coherent, often responses monosyllabic. Abstraction fair, computation impaired, language function intact. Mood and affect still depressed. LABORATORY DATA: Reviewed. IMPRESSION: Bereavement versus major depressive disorder, recurrent. PLAN: Change Celexa 40 mg a day to Cymbalta 30 mg a day for 2 days, then 60 mg a day. Continue Abilify and rest of the psychotropics including trazodone. MAN Merced FOY MD DR: DIANA/dereck JOB#: [id number] / [id number]
[2017-03-20 05:52] VITALS: BP 104/64
[2017-03-20] MEDS: DULoxetine HCL 30 MG CAPSULE.DR PO SCH (07:55)
[2017-03-20] MEDS: CARBIDOPA/LEVODOPA 25/100MG TABLET PO SCH ×3 (07:55→20:17)
[2017-03-20] MEDS: ARIPiprazole 5 MG TABLET PO SCH ×2 (07:55→20:16)
[2017-03-20] MEDS: POTASSIUM CHLORIDE 20 MEQ TABLET.ER. PO SCH ×3 (07:55→20:18)
[2017-03-20] MEDS: METOPROLOL TART IMMED RELEASE 25 MG TABLET PO SCH ×2 (07:55→20:17)
[2017-03-20] MEDS: HYDROcodone/APAP 10/325 1 TAB TABLET PO PRN ×3 (07:57→20:22)
[2017-03-20] MEDS: hydrOXYzine PAMOATE 25 MG CAPSULE PO PRN (12:54)
[2017-03-20] MEDS: ACETAMINOPHEN 325 MG TABLET PO PRN (12:54)
[2017-03-20 15:51] VITALS: BP 105/65
--- NOTE | 2017-03-20 20:14 | PDOC ---
Exam Note: Erwin Note: Please also refer to the separate dictated note~for this date of service dictated separately.~Patient seen individually. Discussed the patient with Nursing staff reviewed the chart.~Reviewed interim history and current functioning. Reviewed vital signs,~Labs/ Radiology~and current medications noted below. Continue current treatment with the changes noted in the dictated addendum note Assessment: Vital Signs: Vital Signs Date Time Temp Pulse Resp B/P (MAP) Pulse Ox O2 Delivery O2 Flow Rate FiO2 03/20/17 15:51 98.4 72 18 105/65 (78) 96 03/19/17 20:43 Room Air I&O Intake and Output 03/20/17 07:00 Intake Total 840 ml Balance 840 ml Intake Oral 840 ml Current Medications: Meds: Current Medications Potassium Bicarbonate (Klyte/Cl) 25 meq DAILY PO ; Start 03/14/17 at 09:00; Stop 03/14/17 at 09:33; Status DC Alprazolam (Xanax) 0.5 mg 1X ONCE PO Last administered on 03/13/17at 21:56; Start 03/13/17 at 21:00; Stop 03/13/17 at 21:01; Status DC Trimethoprim/ Sulfamethoxazole (Bactrim Ds) 1 tab 1X ONCE PO Last administered on 03/13/17at 21:55; Start 03/13/17 at 21:00; Stop 03/13/17 at 21:01 ; Status DC Acetaminophen (Tylenol) 650 mg PRN Q6HRS PRN PO PAIN / TEMP Last administered on 03/20/17at 12:54; Start 03/14/17 at 01:15 Multi-Ingredient Ointment (Analgesic [place]) 1 mathew PRN QID PRN TP MUSCLE PAIN; Start 03/14/17 at 01:15 Al Hydroxide/Mg Hydroxide (Mylanta Plus Xs) 15 ml PRN AFTMEALHC PRN PO DYSPEPSIA; Start 03/14/17 at 01:15 Magnesium Hydroxide (Milk Of Magnesia) 2,400 mg PRN QHS PRN PO CONSTIPATION Last administered on 03/19/17at 15:35; Start 03/14/17 at 01:15 Acetaminophen/ Hydrocodone Bitart (Lortab 5/325) 1 tab TID PO ; Start 03/14/17 at 09:00; Stop 03/14/17 at 09:33; Status DC Acetaminophen/ Hydrocodone Bitart (Lortab 5/325) 1 tab PRN Q6HRS PRN PO PAIN; Start 03/14/17 at 01:15; Stop 03/14/17 at 09:33; Status DC Ondansetron HCl (Zofran Odt) 4 mg PRN Q8HRS PRN PO NAUSEA; Start 03/14/17 at 01 :15 Promethazine HCl (Phenergan) 25 mg PRN Q6HRS PRN PO NAUSEA; Start 03/14/17 at 01:15; Stop 03/14/17 at 09:33; Status DC Trazodone HCl (Desyrel) 50 mg QHS PO Last administered on 03/14/17at 02:11; Start 03/14/17 at 02:00; Stop 03/14/17 at 09:33; Status DC Zolpidem Tartrate (Ambien) 5 mg QHS PO ; Start 03/14/17 at 21:00; Stop 03/14/17 at 21:00; Status DC Zolpidem Tartrate (Ambien) 10 mg QHS PO Last administered on 03/14/17at 19:49; Start 03/14/17 at 21:00; Stop 03/15/17 at 07:09; Status DC Carbidopa/Levodopa (Sinemet 25/100) 1 tab TID PO Last administered on 03/20/17at 14:19; Start 03/14/17 at 09:30 Citalopram Hydrobromide (CeleXA) 20 mg DAILY PO Last administered on 03/15/17at 09:08; Start 03/14/17 at 09:30; Stop 03/15/17 at 15:04; Status DC Gabapentin (Neurontin) 300 mg QHS PO Last administered on 03/19/17at 20:42; Start 03/14/17 at 21:00 Acetaminophen/ Hydrocodone Bitart (Lortab 10/325) 1 tab PRN Q6HRS PRN PO PAIN Last administered on 03/20/17at 14:19; Start 03/14/17 at 09:30 Metoprolol Tartrate (Lopressor) 25 mg BID PO ; Start 03/14/17 at 21:00; Stop at 21:00; Status DC Trazodone HCl (Desyrel) 150 mg QHS PO Last administered on 03/19/17 20:44; Start 03/14/17 at 21:00 Metoprolol Tartrate (Lopressor) 25 mg BID PO Last administered on 03/20/17 07: 55; Start 03/14/17 at 09:45 Aripiprazole (Abilify) 2.5 mg BID PO Last administered on 03/20/17 07:55; Start 03/14/17 at 21:00 Hydroxyzine Pamoate (Vistaril) 25 mg PRN Q4HRS PRN PO ANXIETY Last administered on 03/20/17 12:54; Start 03/14/17 at 15:15 Vitamin D (Vitamin D3) 50,000 unit WEEKLY PO Last administered on 03/14/17 18: 35; Start 03/14/17 at 18:00 Potassium Chloride (Klor-Con) 20 meq TID PO Last administered on 03/20/17 14:17 ; Start 03/14/17 at 21:00 Zolpidem Tartrate (Ambien) 10 mg PRN QHS PRN PO INSOMNIA Last administered on at 20:42; Start 03/15/17 at 21:00 Citalopram Hydrobromide (CeleXA) 40 mg DAILY PO Last administered on 03/18/17at 08:13; Start 03/16/17 at 09:00; Stop 03/18/17 at 21:44; Status DC Duloxetine HCl (Cymbalta) 30 mg DAILY PO Last administered on 03/20/17at 07:55; Start 03/19/17 at 09:00; Stop 03/20/17 at 09:01; Status DC Duloxetine HCl (Cymbalta) 60 mg DAILY PO ; Start 03/21/17 at 09:00 Active Scripts Active Reported Trazodone Hcl 150 Mg Tablet 150 Mg PO QHS Hydroxyzine Pamoate 25 Mg Capsule 25 Mg PO PRN Q4HRS PRN Klor-Con M20 (Potassium Chloride) 20 Meq Tab.er.prt 20 Meq PO TID Zofran Odt (Ondansetron) 4 Mg Tab.rapdis 4 Mg PO PRN Q8HRS PRN Metoprolol Tartrate 25 Mg Tablet 25 Mg PO BID Neurontin (Gabapentin) 300 Mg Capsule 300 Mg PO QHS Cymbalta (Duloxetine Hcl) 60 Mg Capsule.dr 60 Mg PO DAILY Cymbalta (Duloxetine Hcl) 30 Mg Capsule.dr 30 Mg PO DAILY 2 Days Vitamin D3 (Cholecalciferol (Vitamin D3)) 50,000 Unit Capsule 50,000 Unit PO WEEKLY Sinemet 25-100 Mg Tablet (Carbidopa/Levodopa) 1 Each Tablet 1 Tab PO TID Abilify (Aripiprazole) 5 Mg Tablet 2.5 Mg PO BID Ambien (Zolpidem Tartrate) 5 Mg Tablet 1 Tab PO QHS Hydrocodone-Apap 5-325 (Hydrocodone Bit/Acetaminophen) 1 Each Tablet 1 Tab PO TID Trazodone Hcl 50 Mg Tablet 1 Tab PO QHS I have reviewed the current psychotropics carefully including drug interactions. Risk benefit ratio favors no change other than as noted in my dictated progress note. Diagnosis: Problems: (1) Depression (2) PSYCHOTIC DISORDER W DELUSIONS DUE TO KNOWN PHYSIOL COND (3) Major depressive disorder, recurrent episode (4) Anxiety disorder (5) Wrist fracture, right RAHEEM FOY MD Mar 20, 2017 20:14
[2017-03-20] MEDS: GABAPENTIN 300 MG CAPSULE. PO SCH (20:17)
[2017-03-20] MEDS: traZODone 150 MG TABLET. PO SCH (20:17)
[2017-03-20] MEDS: ZOLPIDEM 5 MG TABLET. PO PRN (20:21)
--- NOTE | 2017-03-20 23:05 | PN ---
DATE: 03/19/2017 This is a late entry for 03/19/2017 and covers elements not covered in my initial note of 03/19/2017. I met with the patient the evening of 03/19/2017 in her room. She has been getting out of her room somewhat more, at times makes statements that she wants to go to sleep and , but no active suicidal ideation. She is pleasant, well oriented, medication seeking at times, per nursing report, smiling. No CV, , pulmonary, eye system symptoms on review. During the individual visit, we processed at some length the loss of her son and the implications and what this means to her and her own self-care. She has 2 other boys and 1 lives close by. The other is out state. MENTAL STATUS EXAM: Reasonably oriented. Speech is coherent, has some latency. Abstraction fair, computation impaired, language function intact. Mood and affect still depressed, but showing some improvement. No active suicidal ideation. LABORATORY DATA: Reviewed. IMPRESSION: Bereavement; major depressive disorder, recurrent. Rest unchanged. PLAN: Continue current psychotropics as mentioned in my initial note. Cymbalta was started for now. MAN Merced FOY MD DR: DIANA/dereck JOB#: [id number] / [id number]
[2017-03-21 06:13] VITALS: BP 108/79
[2017-03-21] MEDS: ARIPiprazole 5 MG TABLET PO SCH ×2 (08:39→20:38)
[2017-03-21] MEDS: METOPROLOL TART IMMED RELEASE 25 MG TABLET PO SCH ×2 (08:42→20:36)
[2017-03-21] MEDS: CARBIDOPA/LEVODOPA 25/100MG TABLET PO SCH ×3 (08:42→20:35)
[2017-03-21] MEDS: POTASSIUM CHLORIDE 20 MEQ TABLET.ER. PO SCH ×3 (08:42→20:36)
[2017-03-21] MEDS: CHOLECALCIFEROL (VITAMIN D3) 50,000 UNIT CAPSULE PO SCH (08:43)
[2017-03-21] MEDS: DULoxetine HCL 60 MG CAPSULE.DR PO SCH (08:44)
[2017-03-21] MEDS: HYDROcodone/APAP 10/325 1 TAB TABLET PO PRN ×2 (08:44→15:28)
[2017-03-21] MEDS: hydrOXYzine PAMOATE 25 MG CAPSULE PO PRN (11:57)
[2017-03-21] MEDS: ACETAMINOPHEN 325 MG TABLET PO PRN (11:57)
[2017-03-21 16:12] VITALS: BP 108/76
--- NOTE | 2017-03-21 19:14 | PDOC ---
Exam Note: Erwin Note: Please also refer to the separate dictated note~for this date of service dictated separately.~Patient seen individually. Discussed the patient with Nursing staff reviewed the chart.~Reviewed interim history and current functioning. Reviewed vital signs,~Labs/ Radiology~and current medications noted below. Continue current treatment with the changes noted in the dictated addendum note Assessment: Vital Signs: Vital Signs Date Time Temp Pulse Resp B/P (MAP) Pulse Ox O2 Delivery O2 Flow Rate FiO2 03/21/17 16:12 98.3 73 20 108/76 (87) 95 03/19/17 20:43 Room Air I&O Intake and Output 03/21/17 07:00 Intake Total 960 ml Balance 960 ml Intake Oral 960 ml # Bowel Movements 1 Current Medications: Meds: Current Medications Potassium Bicarbonate (Klyte/Cl) 25 meq DAILY PO ; Start 03/14/17 at 09:00; Stop 03/14/17 at 09:33; Status DC Alprazolam (Xanax) 0.5 mg 1X ONCE PO Last administered on 03/13/17at 21:56; Start 03/13/17 at 21:00; Stop 03/13/17 at 21:01; Status DC Trimethoprim/ Sulfamethoxazole (Bactrim Ds) 1 tab 1X ONCE PO Last administered on 03/13/17at 21:55; Start 03/13/17 at 21:00; Stop 03/13/17 at 21:01 ; Status DC Acetaminophen (Tylenol) 650 mg PRN Q6HRS PRN PO PAIN / TEMP Last administered on 03/21/17at 11:57; Start 03/14/17 at 01:15 Multi-Ingredient Ointment (Analgesic [place]) 1 mathew PRN QID PRN TP MUSCLE PAIN; Start 03/14/17 at 01:15 Al Hydroxide/Mg Hydroxide (Mylanta Plus Xs) 15 ml PRN AFTMEALHC PRN PO DYSPEPSIA; Start 03/14/17 at 01:15 Magnesium Hydroxide (Milk Of Magnesia) 2,400 mg PRN QHS PRN PO CONSTIPATION Last administered on 03/19/17at 15:35; Start 03/14/17 at 01:15 Acetaminophen/ Hydrocodone Bitart (Lortab 5/325) 1 tab TID PO ; Start 03/14/17 at 09:00; Stop 03/14/17 at 09:33; Status DC Acetaminophen/ Hydrocodone Bitart (Lortab 5/325) 1 tab PRN Q6HRS PRN PO PAIN; Start 03/14/17 at 01:15; Stop 03/14/17 at 09:33; Status DC Ondansetron HCl (Zofran Odt) 4 mg PRN Q8HRS PRN PO NAUSEA; Start 03/14/17 at 01 :15 Promethazine HCl (Phenergan) 25 mg PRN Q6HRS PRN PO NAUSEA; Start 03/14/17 at 01:15; Stop 03/14/17 at 09:33; Status DC Trazodone HCl (Desyrel) 50 mg QHS PO Last administered on 03/14/17at 02:11; Start 03/14/17 at 02:00; Stop 03/14/17 at 09:33; Status DC Zolpidem Tartrate (Ambien) 5 mg QHS PO ; Start 03/14/17 at 21:00; Stop 03/14/17 at 21:00; Status DC Zolpidem Tartrate (Ambien) 10 mg QHS PO Last administered on 03/14/17at 19:49; Start 03/14/17 at 21:00; Stop 03/15/17 at 07:09; Status DC Carbidopa/Levodopa (Sinemet 25/100) 1 tab TID PO Last administered on 03/21/17at 14:40; Start 03/14/17 at 09:30 Citalopram Hydrobromide (CeleXA) 20 mg DAILY PO Last administered on 03/15/17at 09:08; Start 03/14/17 at 09:30; Stop 03/15/17 at 15:04; Status DC Gabapentin (Neurontin) 300 mg QHS PO Last administered on 03/20/17at 20:17; Start 03/14/17 at 21:00 Acetaminophen/ Hydrocodone Bitart (Lortab 10/325) 1 tab PRN Q6HRS PRN PO PAIN Last administered on 03/21/17at 15:28; Start 03/14/17 at 09:30 Metoprolol Tartrate (Lopressor) 25 mg BID PO ; Start 03/14/17 at 21:00; Stop at 21:00; Status DC Trazodone HCl (Desyrel) 150 mg QHS PO Last administered on 03/20/17 20:17; Start 03/14/17 at 21:00 Metoprolol Tartrate (Lopressor) 25 mg BID PO Last administered on 03/21/17 08: 42; Start 03/14/17 at 09:45 Aripiprazole (Abilify) 2.5 mg BID PO Last administered on 03/21/17 08:39; Start 03/14/17 at 21:00 Hydroxyzine Pamoate (Vistaril) 25 mg PRN Q4HRS PRN PO ANXIETY Last administered on 03/21/17 11:57; Start 03/14/17 at 15:15 Vitamin D (Vitamin D3) 50,000 unit WEEKLY PO Last administered on 03/21/17 08: 43; Start 03/14/17 at 18:00 Potassium Chloride (Klor-Con) 20 meq TID PO Last administered on 03/21/17 14:40 ; Start 03/14/17 at 21:00 Zolpidem Tartrate (Ambien) 10 mg PRN QHS PRN PO INSOMNIA Last administered on 20:21; Start 03/15/17 at 21:00 Citalopram Hydrobromide (CeleXA) 40 mg DAILY PO Last administered on 03/18/17 08:13; Start 03/16/17 at 09:00; Stop 03/18/17 at 21:44; Status DC Duloxetine HCl (Cymbalta) 30 mg DAILY PO Last administered on 03/20/17 07:55; Start 03/19/17 at 09:00; Stop 03/20/17 at 09:01; Status DC Duloxetine HCl (Cymbalta) 60 mg DAILY PO Last administered on 03/21/17 08:44; Start 03/21/17 at 09:00 Active Scripts Active Reported Trazodone Hcl 150 Mg Tablet 150 Mg PO QHS Hydroxyzine Pamoate 25 Mg Capsule 25 Mg PO PRN Q4HRS PRN Klor-Con M20 (Potassium Chloride) 20 Meq Tab.er.prt 20 Meq PO TID Zofran Odt (Ondansetron) 4 Mg Tab.rapdis 4 Mg PO PRN Q8HRS PRN Metoprolol Tartrate 25 Mg Tablet 25 Mg PO BID Neurontin (Gabapentin) 300 Mg Capsule 300 Mg PO QHS Cymbalta (Duloxetine Hcl) 60 Mg Capsule.dr 60 Mg PO DAILY Cymbalta (Duloxetine Hcl) 30 Mg Capsule.dr 30 Mg PO DAILY 2 Days Vitamin D3 (Cholecalciferol (Vitamin D3)) 50,000 Unit Capsule 50,000 Unit PO WEEKLY Sinemet 25-100 Mg Tablet (Carbidopa/Levodopa) 1 Each Tablet 1 Tab PO TID Abilify (Aripiprazole) 5 Mg Tablet 2.5 Mg PO BID Ambien (Zolpidem Tartrate) 5 Mg Tablet 1 Tab PO QHS Hydrocodone-Apap 5-325 (Hydrocodone Bit/Acetaminophen) 1 Each Tablet 1 Tab PO TID Trazodone Hcl 50 Mg Tablet 1 Tab PO QHS I have reviewed the current psychotropics carefully including drug interactions. Risk benefit ratio favors no change other than as noted in my dictated progress note. Diagnosis: Problems: (1) Depression (2) PSYCHOTIC DISORDER W DELUSIONS DUE TO KNOWN PHYSIOL COND (3) Major depressive disorder, recurrent episode (4) Anxiety disorder (5) Wrist fracture, right RAHEEM FOY MD Mar 21, 2017 19:14
[2017-03-21] MEDS: traZODone 150 MG TABLET. PO SCH (20:35)
[2017-03-21] MEDS: ZOLPIDEM 5 MG TABLET. PO PRN (20:36)
[2017-03-21] MEDS: GABAPENTIN 300 MG CAPSULE. PO SCH (20:36)
--- NOTE | 2017-03-21 22:14 | PN ---
DATE: 03/20/2017 This is a late entry for 03/20/2017 and covers elements not covered in my initial note of 03/20/2017. I met with the patient in the evening of 03/20/2017. The patient has been a little more verbal, interactive and per nursing report, "came out of her shell today." Nursing staff did hear and she talked about going to the gym on a regular basis in the past. Stated she wants to look and feel good. Seems a little more motivated, verbal, interactive as I met with her. Commenting positively on my dress. REVIEW OF SYSTEMS: No CV, , pulmonary, eye system symptoms on review. MENTAL STATUS EXAM: Reasonably oriented. Speech coherent, abstraction fair, computation impaired, language function intact. Mood and affect still depressed, showing improvement. No suicidal or homicidal ideation. LABORATORY DATA: Reviewed. IMPRESSION: Bereavement, major depressive disorder, recurrent, in partial remission. PLAN: Continue current psychotropics, Abilify, Cymbalta, which has been increased. Adjust further as clinically indicated. MAN Merced FOY MD DR: DIANA/dereck JOB#: [id number] / [id number]
[2017-03-22 05:55] VITALS: BP 111/76
[2017-03-22] MEDS: CARBIDOPA/LEVODOPA 25/100MG TABLET PO SCH ×3 (09:00→19:31)
[2017-03-22] MEDS: ARIPiprazole 5 MG TABLET PO SCH ×2 (09:01→19:31)
[2017-03-22] MEDS: DULoxetine HCL 60 MG CAPSULE.DR PO SCH (09:01)
[2017-03-22] MEDS: POTASSIUM CHLORIDE 20 MEQ TABLET.ER. PO SCH ×3 (09:01→19:31)
[2017-03-22] MEDS: METOPROLOL TART IMMED RELEASE 25 MG TABLET PO SCH ×2 (09:02→19:31)
[2017-03-22] MEDS: HYDROcodone/APAP 10/325 1 TAB TABLET PO PRN ×2 (14:04→21:21)
[2017-03-22 15:22] VITALS: BP 110/77
[2017-03-22] MEDS: GABAPENTIN 300 MG CAPSULE. PO SCH (19:31)
[2017-03-22] MEDS: traZODone 150 MG TABLET. PO SCH (19:31)
--- NOTE | 2017-03-22 20:16 | PDOC ---
Exam Note: Erwin Note: Please also refer to the separate dictated note~for this date of service dictated separately.~Patient seen individually. Discussed the patient with Nursing staff reviewed the chart.~Reviewed interim history and current functioning. Reviewed vital signs,~Labs/ Radiology~and current medications noted below. Continue current treatment with the changes noted in the dictated addendum note Assessment: Vital Signs: Vital Signs Date Time Temp Pulse Resp B/P (MAP) Pulse Ox O2 Delivery O2 Flow Rate FiO2 03/22/17 19:31 82 110/77 03/22/17 15:22 98.4 16 97 03/19/17 20:43 Room Air I&O Intake and Output 03/22/17 07:00 Intake Total 1440 ml Balance 1440 ml Intake Oral 1440 ml Current Medications: Meds: Current Medications Potassium Bicarbonate (Klyte/Cl) 25 meq DAILY PO ; Start 03/14/17 at 09:00; Stop 03/14/17 at 09:33; Status DC Alprazolam (Xanax) 0.5 mg 1X ONCE PO Last administered on 03/13/17at 21:56; Start 03/13/17 at 21:00; Stop 03/13/17 at 21:01; Status DC Trimethoprim/ Sulfamethoxazole (Bactrim Ds) 1 tab 1X ONCE PO Last administered on 03/13/17at 21:55; Start 03/13/17 at 21:00; Stop 03/13/17 at 21:01 ; Status DC Acetaminophen (Tylenol) 650 mg PRN Q6HRS PRN PO PAIN / TEMP Last administered on 03/21/17at 11:57; Start 03/14/17 at 01:15 Multi-Ingredient Ointment (Analgesic [place]) 1 mathew PRN QID PRN TP MUSCLE PAIN; Start 03/14/17 at 01:15 Al Hydroxide/Mg Hydroxide (Mylanta Plus Xs) 15 ml PRN AFTMEALHC PRN PO DYSPEPSIA; Start 03/14/17 at 01:15 Magnesium Hydroxide (Milk Of Magnesia) 2,400 mg PRN QHS PRN PO CONSTIPATION Last administered on 03/19/17at 15:35; Start 03/14/17 at 01:15 Acetaminophen/ Hydrocodone Bitart (Lortab 5/325) 1 tab TID PO ; Start 03/14/17 at 09:00; Stop 03/14/17 at 09:33; Status DC Acetaminophen/ Hydrocodone Bitart (Lortab 5/325) 1 tab PRN Q6HRS PRN PO PAIN; Start 03/14/17 at 01:15; Stop 03/14/17 at 09:33; Status DC Ondansetron HCl (Zofran Odt) 4 mg PRN Q8HRS PRN PO NAUSEA; Start 03/14/17 at 01 :15 Promethazine HCl (Phenergan) 25 mg PRN Q6HRS PRN PO NAUSEA; Start 03/14/17 at 01:15; Stop 03/14/17 at 09:33; Status DC Trazodone HCl (Desyrel) 50 mg QHS PO Last administered on 03/14/17at 02:11; Start 03/14/17 at 02:00; Stop 03/14/17 at 09:33; Status DC Zolpidem Tartrate (Ambien) 5 mg QHS PO ; Start 03/14/17 at 21:00; Stop 03/14/17 at 21:00; Status DC Zolpidem Tartrate (Ambien) 10 mg QHS PO Last administered on 03/14/17at 19:49; Start 03/14/17 at 21:00; Stop 03/15/17 at 07:09; Status DC Carbidopa/Levodopa (Sinemet 25/100) 1 tab TID PO Last administered on 03/22/17at 19:31; Start 03/14/17 at 09:30 Citalopram Hydrobromide (CeleXA) 20 mg DAILY PO Last administered on 03/15/17at 09:08; Start 03/14/17 at 09:30; Stop 03/15/17 at 15:04; Status DC Gabapentin (Neurontin) 300 mg QHS PO Last administered on 03/22/17at 19:31; Start 03/14/17 at 21:00 Acetaminophen/ Hydrocodone Bitart (Lortab 10/325) 1 tab PRN Q6HRS PRN PO PAIN Last administered on 03/22/17at 14:04; Start 03/14/17 at 09:30 Metoprolol Tartrate (Lopressor) 25 mg BID PO ; Start 03/14/17 at 21:00; Stop at 21:00; Status DC Trazodone HCl (Desyrel) 150 mg QHS PO Last administered on 03/22/17 19:31; Start 03/14/17 at 21:00 Metoprolol Tartrate (Lopressor) 25 mg BID PO Last administered on 03/22/17 19: 31; Start 03/14/17 at 09:45 Aripiprazole (Abilify) 2.5 mg BID PO Last administered on 03/22/17 19:31; Start 03/14/17 at 21:00 Hydroxyzine Pamoate (Vistaril) 25 mg PRN Q4HRS PRN PO ANXIETY Last administered on 03/21/17 11:57; Start 03/14/17 at 15:15 Vitamin D (Vitamin D3) 50,000 unit WEEKLY PO Last administered on 03/21/17 08: 43; Start 03/14/17 at 18:00 Potassium Chloride (Klor-Con) 20 meq TID PO Last administered on 03/22/17 19:31 ; Start 03/14/17 at 21:00 Zolpidem Tartrate (Ambien) 10 mg PRN QHS PRN PO INSOMNIA Last administered on 20:36; Start 03/15/17 at 21:00 Citalopram Hydrobromide (CeleXA) 40 mg DAILY PO Last administered on 03/18/17 08:13; Start 03/16/17 at 09:00; Stop 03/18/17 at 21:44; Status DC Duloxetine HCl (Cymbalta) 30 mg DAILY PO Last administered on 03/20/17at 07:55; Start 03/19/17 at 09:00; Stop 03/20/17 at 09:01; Status DC Duloxetine HCl (Cymbalta) 60 mg DAILY PO Last administered on 03/22/17 09:01; Start 03/21/17 at 09:00 Active Scripts Active Reported Trazodone Hcl 150 Mg Tablet 150 Mg PO QHS Hydroxyzine Pamoate 25 Mg Capsule 25 Mg PO PRN Q4HRS PRN Klor-Con M20 (Potassium Chloride) 20 Meq Tab.er.prt 20 Meq PO TID Zofran Odt (Ondansetron) 4 Mg Tab.rapdis 4 Mg PO PRN Q8HRS PRN Metoprolol Tartrate 25 Mg Tablet 25 Mg PO BID Neurontin (Gabapentin) 300 Mg Capsule 300 Mg PO QHS Cymbalta (Duloxetine Hcl) 60 Mg Capsule.dr 60 Mg PO DAILY Cymbalta (Duloxetine Hcl) 30 Mg Capsule.dr 30 Mg PO DAILY 2 Days Vitamin D3 (Cholecalciferol (Vitamin D3)) 50,000 Unit Capsule 50,000 Unit PO WEEKLY Sinemet 25-100 Mg Tablet (Carbidopa/Levodopa) 1 Each Tablet 1 Tab PO TID Abilify (Aripiprazole) 5 Mg Tablet 2.5 Mg PO BID Ambien (Zolpidem Tartrate) 5 Mg Tablet 1 Tab PO QHS Hydrocodone-Apap 5-325 (Hydrocodone Bit/Acetaminophen) 1 Each Tablet 1 Tab PO TID Trazodone Hcl 50 Mg Tablet 1 Tab PO QHS I have reviewed the current psychotropics carefully including drug interactions. Risk benefit ratio favors no change other than as noted in my dictated progress note. Diagnosis: Problems: (1) Depression (2) PSYCHOTIC DISORDER W DELUSIONS DUE TO KNOWN PHYSIOL COND (3) Major depressive disorder, recurrent episode (4) Anxiety disorder (5) Wrist fracture, right DANIIRAHEEM Hess MD Mar 22, 2017 20:16
[2017-03-23 05:51] VITALS: BP 106/71
[2017-03-23] MEDS: DULoxetine HCL 60 MG CAPSULE.DR PO SCH (08:51)
[2017-03-23] MEDS: METOPROLOL TART IMMED RELEASE 25 MG TABLET PO SCH ×2 (08:51→19:22)
[2017-03-23] MEDS: CARBIDOPA/LEVODOPA 25/100MG TABLET PO SCH ×3 (08:52→19:22)
[2017-03-23] MEDS: POTASSIUM CHLORIDE 20 MEQ TABLET.ER. PO SCH ×3 (08:52→19:22)
[2017-03-23] MEDS: ARIPiprazole 5 MG TABLET PO SCH ×2 (08:52→19:22)
[2017-03-23] MEDS: HYDROcodone/APAP 10/325 1 TAB TABLET PO PRN ×2 (08:56→20:04)
[2017-03-23 15:53] VITALS: BP 113/83
[2017-03-23] MEDS: traZODone 150 MG TABLET. PO SCH (19:22)
[2017-03-23] MEDS: GABAPENTIN 300 MG CAPSULE. PO SCH (19:22)
--- NOTE | 2017-03-23 19:34 | PDOC ---
Exam Note: Erwin Note: Please also refer to the separate dictated note~for this date of service dictated separately.~Patient seen individually. Discussed the patient with Nursing staff reviewed the chart.~Reviewed interim history and current functioning. Reviewed vital signs,~Labs/ Radiology~and current medications noted below. Continue current treatment with the changes noted in the dictated addendum note Assessment: Vital Signs: Vital Signs Date Time Temp Pulse Resp B/P (MAP) Pulse Ox O2 Delivery O2 Flow Rate FiO2 03/23/17 19:22 80 113/83 03/23/17 15:53 98.9 20 98 03/19/17 20:43 Room Air I&O Intake and Output 03/23/17 07:00 Intake Total 960 ml Balance 960 ml Intake Oral 960 ml Current Medications: Meds: Current Medications Potassium Bicarbonate (Klyte/Cl) 25 meq DAILY PO ; Start 03/14/17 at 09:00; Stop 03/14/17 at 09:33; Status DC Alprazolam (Xanax) 0.5 mg 1X ONCE PO Last administered on 03/13/17at 21:56; Start 03/13/17 at 21:00; Stop 03/13/17 at 21:01; Status DC Trimethoprim/ Sulfamethoxazole (Bactrim Ds) 1 tab 1X ONCE PO Last administered on 03/13/17at 21:55; Start 03/13/17 at 21:00; Stop 03/13/17 at 21:01 ; Status DC Acetaminophen (Tylenol) 650 mg PRN Q6HRS PRN PO PAIN / TEMP Last administered on 03/21/17at 11:57; Start 03/14/17 at 01:15 Multi-Ingredient Ointment (Analgesic [place]) 1 mathew PRN QID PRN TP MUSCLE PAIN; Start 03/14/17 at 01:15 Al Hydroxide/Mg Hydroxide (Mylanta Plus Xs) 15 ml PRN AFTMEALHC PRN PO DYSPEPSIA; Start 03/14/17 at 01:15 Magnesium Hydroxide (Milk Of Magnesia) 2,400 mg PRN QHS PRN PO CONSTIPATION Last administered on 03/19/17at 15:35; Start 03/14/17 at 01:15 Acetaminophen/ Hydrocodone Bitart (Lortab 5/325) 1 tab TID PO ; Start 03/14/17 at 09:00; Stop 03/14/17 at 09:33; Status DC Acetaminophen/ Hydrocodone Bitart (Lortab 5/325) 1 tab PRN Q6HRS PRN PO PAIN; Start 03/14/17 at 01:15; Stop 03/14/17 at 09:33; Status DC Ondansetron HCl (Zofran Odt) 4 mg PRN Q8HRS PRN PO NAUSEA; Start 03/14/17 at 01 :15 Promethazine HCl (Phenergan) 25 mg PRN Q6HRS PRN PO NAUSEA; Start 03/14/17 at 01:15; Stop 03/14/17 at 09:33; Status DC Trazodone HCl (Desyrel) 50 mg QHS PO Last administered on 03/14/17at 02:11; Start 03/14/17 at 02:00; Stop 03/14/17 at 09:33; Status DC Zolpidem Tartrate (Ambien) 5 mg QHS PO ; Start 03/14/17 at 21:00; Stop 03/14/17 at 21:00; Status DC Zolpidem Tartrate (Ambien) 10 mg QHS PO Last administered on 03/14/17at 19:49; Start 03/14/17 at 21:00; Stop 03/15/17 at 07:09; Status DC Carbidopa/Levodopa (Sinemet 25/100) 1 tab TID PO Last administered on 03/23/17at 19:22; Start 03/14/17 at 09:30 Citalopram Hydrobromide (CeleXA) 20 mg DAILY PO Last administered on 03/15/17at 09:08; Start 03/14/17 at 09:30; Stop 03/15/17 at 15:04; Status DC Gabapentin (Neurontin) 300 mg QHS PO Last administered on 03/23/17at 19:22; Start 03/14/17 at 21:00 Acetaminophen/ Hydrocodone Bitart (Lortab 10/325) 1 tab PRN Q6HRS PRN PO PAIN Last administered on 03/23/17at 08:56; Start 03/14/17 at 09:30 Metoprolol Tartrate (Lopressor) 25 mg BID PO ; Start 03/14/17 at 21:00; Stop at 21:00; Status DC Trazodone HCl (Desyrel) 150 mg QHS PO Last administered on 03/23/17 19:22; Start 03/14/17 at 21:00 Metoprolol Tartrate (Lopressor) 25 mg BID PO Last administered on 03/23/17 19: 22; Start 03/14/17 at 09:45 Aripiprazole (Abilify) 2.5 mg BID PO Last administered on 03/23/17 19:22; Start 03/14/17 at 21:00 Hydroxyzine Pamoate (Vistaril) 25 mg PRN Q4HRS PRN PO ANXIETY Last administered on 03/21/17 11:57; Start 03/14/17 at 15:15 Vitamin D (Vitamin D3) 50,000 unit WEEKLY PO Last administered on 03/21/17 08: 43; Start 03/14/17 at 18:00 Potassium Chloride (Klor-Con) 20 meq TID PO Last administered on 03/23/17 19:22 ; Start 03/14/17 at 21:00 Zolpidem Tartrate (Ambien) 10 mg PRN QHS PRN PO INSOMNIA Last administered on 20:36; Start 03/15/17 at 21:00 Citalopram Hydrobromide (CeleXA) 40 mg DAILY PO Last administered on 03/18/17 08:13; Start 03/16/17 at 09:00; Stop 03/18/17 at 21:44; Status DC Duloxetine HCl (Cymbalta) 30 mg DAILY PO Last administered on 03/20/17at 07:55; Start 03/19/17 at 09:00; Stop 03/20/17 at 09:01; Status DC Duloxetine HCl (Cymbalta) 60 mg DAILY PO Last administered on 03/23/17 08:51; Start 03/21/17 at 09:00 Active Scripts Active Reported Trazodone Hcl 150 Mg Tablet 150 Mg PO QHS Hydroxyzine Pamoate 25 Mg Capsule 25 Mg PO PRN Q4HRS PRN Klor-Con M20 (Potassium Chloride) 20 Meq Tab.er.prt 20 Meq PO TID Zofran Odt (Ondansetron) 4 Mg Tab.rapdis 4 Mg PO PRN Q8HRS PRN Metoprolol Tartrate 25 Mg Tablet 25 Mg PO BID Neurontin (Gabapentin) 300 Mg Capsule 300 Mg PO QHS Cymbalta (Duloxetine Hcl) 60 Mg Capsule.dr 60 Mg PO DAILY Cymbalta (Duloxetine Hcl) 30 Mg Capsule.dr 30 Mg PO DAILY 2 Days Vitamin D3 (Cholecalciferol (Vitamin D3)) 50,000 Unit Capsule 50,000 Unit PO WEEKLY Sinemet 25-100 Mg Tablet (Carbidopa/Levodopa) 1 Each Tablet 1 Tab PO TID Abilify (Aripiprazole) 5 Mg Tablet 2.5 Mg PO BID Ambien (Zolpidem Tartrate) 5 Mg Tablet 1 Tab PO QHS Hydrocodone-Apap 5-325 (Hydrocodone Bit/Acetaminophen) 1 Each Tablet 1 Tab PO TID Trazodone Hcl 50 Mg Tablet 1 Tab PO QHS I have reviewed the current psychotropics carefully including drug interactions. Risk benefit ratio favors no change other than as noted in my dictated progress note. Diagnosis: Problems: (1) Depression (2) PSYCHOTIC DISORDER W DELUSIONS DUE TO KNOWN PHYSIOL COND (3) Major depressive disorder, recurrent episode (4) Anxiety disorder (5) Wrist fracture, right DANIIRAHEEM Hess MD Mar 23, 2017 19:34
[2017-03-23] MEDS: ZOLPIDEM 5 MG TABLET. PO PRN (20:04)
--- NOTE | 2017-03-24 00:05 | PN ---
DATE: 03/21/2017 This is a late entry for 03/21/2017 and covers the elements not covered in my initial note of 03/21/2017. SUBJECTIVE: I met with the patient in the evening of 03/21/2017. Overall, the patient remains withdrawn, but doing better, less depressed comes out to groups, other times just wanting to sleep. REVIEW OF SYSTEMS: No CV, , pulmonary, eye system symptoms on review. MENTAL STATUS EXAM: Reasonably oriented. Speech coherent, abstraction fair, computation impaired, language function intact, attention span short. Mood and affect still depressed, but improved. No active suicidal ideations, still overwhelmed with bereavement sudden loss of her son. LABORATORY DATA: Reviewed. IMPRESSION: Bereavement, major depressive disorder, adjustment disorder with depressed mood. PLAN: Continue psychotropics mentioned in my initial note including Abilify and Cymbalta, which has been increased to 60 mg a day. MAN Merced FOY MD DR: DIANA/dereck JOB#: [id number] / [id number]
[2017-03-24] MEDS ORDERED: HYDR-2766 PO (00:52)
--- NOTE | 2017-03-24 04:05 | PN ---
DATE: 03/22/2017 This late entry for 03/22/2017 covers elements not covered in my initial note of 03/22/2017. SUBJECTIVE: The patient was staffed at treatment team meeting with the entire team morning of 03/22/2017, seen individually in the evening of 03/22/2017. She remains somewhat depressed, grieving the loss of her son, which was a significant stressor for her, but coming out more for activities. She has vague suicidal ideation, but no active plans intent, certainly no attempt. During the individual visit, she was able to process ways to seek support from her son who lives close by her and the other son is out of state. REVIEW OF SYSTEMS: No CV, , pulmonary, eye system symptoms on review. MENTAL STATUS EXAM: Reasonably oriented. Speech coherent, abstraction fair, computation impaired, language function intact. Mood and affect still somewhat dysphoric, but improved. No active suicidal ideation. LABORATORY DATA: Reviewed. IMPRESSION: Major depressive disorder versus bereavement. PLAN: Continue current psychotropics. Abilify and Cymbalta was increased. She feels the Cymbalta has helped her moods. MAN Merced FOY MD DR: DIANA/dereck JOB#: [id number] / [id number]
[2017-03-24 05:49] VITALS: BP 95/64
[2017-03-24] MEDS: ARIPiprazole 5 MG TABLET PO SCH (07:57)
[2017-03-24] MEDS: POTASSIUM CHLORIDE 20 MEQ TABLET.ER. PO SCH (07:57)
[2017-03-24] MEDS: DULoxetine HCL 60 MG CAPSULE.DR PO SCH (07:57)
[2017-03-24] MEDS: CARBIDOPA/LEVODOPA 25/100MG TABLET PO SCH (07:58)
[2017-03-24] MEDS: HYDROcodone/APAP 10/325 1 TAB TABLET PO PRN (08:06)
[2017-03-24] MEDS: METOPROLOL TART IMMED RELEASE 25 MG TABLET PO SCH (09:00)
--- NOTE | 2017-03-25 15:08 | DS ---
DATE OF DISCHARGE: 03/24/2017 DISCHARGE SUMMARY/PSYCHIATRIC PROGRESS NOTE This is a late entry for date of service 03/24/2017, covers elements not covered in my initial note of 03/24/2017. REASON FOR ADMISSION: Please refer to the admission history for details. Briefly, the patient is a 76-year-old female referred by Dr. Mead her primary care physician and admitted through the Emergency Room on account of suicidal ideation, worsening symptoms of depression/bereavement after the unexpected of her 49-year-old son following a routine surgery at [facility] in the recent past, within the past 4 days of her admission. She stopped eating, was not taking her medications, depressed, anxious, having suicidal ideation, feeling hopeless, helpless, worthless, referred for inpatient psychiatric stabilization. SIGNIFICANT FINDINGS AND CLINICAL COURSE: Following admission, the patient was seen daily individually by myself, followed medically per Dr. Luna/Dr. Maddox. Initially, she is quite withdrawn, spending much time in her room, sad, depressed, hopeless, worthless, suicidal. Adjustments were made in her psychotropics, she seemed to respond better to a combination of trazodone 150 mg at bedtime; Cymbalta, increasing to 60 mg a day; Abilify was 2.5 mg b.i.d. She remained on Sinemet for Parkinson's, Neurontin 300 mg at bedtime, Lortab p.r.n., hydroxyzine p.r.n., Ambien 10 mg at bedtime p.r.n. Gradually her mood improved. She was more interactive, coming out in the day area, interacting in groups, verbal, open, forthcoming as I met with her daily individually. No suicidal or homicidal ideation prior to discharge. Mood was improved. REVIEW OF SYSTEMS: Prior to discharge on 03/24/2017 no CV, , pulmonary, eye system symptoms on review. MENTAL STATUS EXAM: Oriented to herself and situation. Speech coherent, abstraction fair, computation impaired, language function intact. Mood and affect are improved. No suicidal or homicidal ideation. CONDITION AT DISCHARGE: Improved. FINAL DIAGNOSES: Major depressive disorder, recurrent versus bereavement; anxiety disorder, unspecified. Rest diagnoses as above: DISCHARGE MEDICATIONS: Please refer to the EMRAD. [facility] Time for discharge and management greater than 30 minutes. MAN Merced FOY MD DR: Jaime JOB#: [id number] / [id number]
--- NOTE | 2017-03-25 20:33 | PDOC ---
Exam Note: Erwin Note: Please also refer to the separate dictated note~for this date of service dictated separately.~Patient seen individually. Discussed the patient with Nursing staff reviewed the chart.~Reviewed interim history and current functioning. Reviewed vital signs,~Labs/ Radiology~and current medications noted below. Continue current treatment with the changes noted in the dictated addendum note Assessment: Vital Signs: Vital Signs Date Time Temp Pulse Resp B/P (MAP) Pulse Ox O2 Delivery O2 Flow Rate FiO2 03/24/17 09:10 18 03/24/17 05:49 97.7 61 95/64 (74) 93 03/19/17 20:43 Room Air I&O Intake and Output 03/25/17 07:00 Intake Total 460 ml Balance 460 ml Intake Oral 460 ml Current Medications: Meds: Current Medications Potassium Bicarbonate (Klyte/Cl) 25 meq DAILY PO ; Start 03/14/17 at 09:00; Stop 03/14/17 at 09:33; Status DC Alprazolam (Xanax) 0.5 mg 1X ONCE PO Last administered on 03/13/17at 21:56; Start 03/13/17 at 21:00; Stop 03/13/17 at 21:01; Status DC Trimethoprim/ Sulfamethoxazole (Bactrim Ds) 1 tab 1X ONCE PO Last administered on 03/13/17at 21:55; Start 03/13/17 at 21:00; Stop 03/13/17 at 21:01 ; Status DC Acetaminophen (Tylenol) 650 mg PRN Q6HRS PRN PO PAIN / TEMP Last administered on 03/21/17at 11:57; Start 03/14/17 at 01:15; Stop 03/24/17 at 11:51; Status DC Multi-Ingredient Ointment (Analgesic [place]) 1 mathew PRN QID PRN TP MUSCLE PAIN; Start 03/14/17 at 01:15; Stop 03/24/17 at 11:51; Status DC Al Hydroxide/Mg Hydroxide (Mylanta Plus Xs) 15 ml PRN AFTMEALHC PRN PO DYSPEPSIA; Start 03/14/17 at 01:15; Stop 03/24/17 at 11:51; Status DC Magnesium Hydroxide (Milk Of Magnesia) 2,400 mg PRN QHS PRN PO CONSTIPATION Last administered on 03/19/17at 15:35; Start 03/14/17 at 01:15; Stop 03/24/17 at 11:51; Status DC Acetaminophen/ Hydrocodone Bitart (Lortab 5/325) 1 tab TID PO ; Start 03/14/17 at 09:00; Stop 03/14/17 at 09:33; Status DC Acetaminophen/ Hydrocodone Bitart (Lortab 5/325) 1 tab PRN Q6HRS PRN PO PAIN; Start 03/14/17 at 01:15; Stop 03/14/17 at 09:33; Status DC Ondansetron HCl (Zofran Odt) 4 mg PRN Q8HRS PRN PO NAUSEA; Start 03/14/17 at 01 :15; Stop 03/24/17 at 11:51; Status DC Promethazine HCl (Phenergan) 25 mg PRN Q6HRS PRN PO NAUSEA; Start 03/14/17 at 01:15; Stop 03/14/17 at 09:33; Status DC Trazodone HCl (Desyrel) 50 mg QHS PO Last administered on 03/14/17at 02:11; Start 03/14/17 at 02:00; Stop 03/14/17 at 09:33; Status DC Zolpidem Tartrate (Ambien) 5 mg QHS PO ; Start 03/14/17 at 21:00; Stop 03/14/17 at 21:00; Status DC Zolpidem Tartrate (Ambien) 10 mg QHS PO Last administered on 03/14/17at 19:49; Start 03/14/17 at 21:00; Stop 03/15/17 at 07:09; Status DC Carbidopa/Levodopa (Sinemet 25/100) 1 tab TID PO Last administered on at 07:58; Start 03/14/17 at 09:30; Stop 03/24/17 at 11:51; Status DC Citalopram Hydrobromide (CeleXA) 20 mg DAILY PO Last administered on 03/15/17at 09:08; Start 03/14/17 at 09:30; Stop 03/15/17 at 15:04; Status DC Gabapentin (Neurontin) 300 mg QHS PO Last administered on 03/23/17at 19:22; Start 03/14/17 at 21:00; Stop 03/24/17 at 11:51; Status DC Acetaminophen/ Hydrocodone Bitart (Lortab 10/325) 1 tab PRN Q6HRS PRN PO PAIN Last administered on 03/24/17at 08:06; Start 03/14/17 at 09:30; Stop 03/24/17 at 11:51; Status DC Metoprolol Tartrate (Lopressor) 25 mg BID PO ; Start 03/14/17 at 21:00; Stop at 21:00; Status DC Trazodone HCl (Desyrel) 150 mg QHS PO Last administered on 03/23/17 19:22; Start 03/14/17 at 21:00; Stop 03/24/17 at 11:51; Status DC Metoprolol Tartrate (Lopressor) 25 mg BID PO Last administered on 03/23/17at 19: 22; Start 03/14/17 at 09:45; Stop 03/24/17 at 11:51; Status DC Aripiprazole (Abilify) 2.5 mg BID PO Last administered on 03/24/17at 07:57; Start 03/14/17 at 21:00; Stop 03/24/17 at 11:51; Status DC Hydroxyzine Pamoate (Vistaril) 25 mg PRN Q4HRS PRN PO ANXIETY Last administered on 03/21/17at 11:57; Start 03/14/17 at 15:15; Stop 03/24/17 at 11:51 ; Status DC Vitamin D (Vitamin D3) 50,000 unit WEEKLY PO Last administered on 03/21/17at 08: 43; Start 03/14/17 at 18:00; Stop 03/24/17 at 11:51; Status DC Potassium Chloride (Klor-Con) 20 meq TID PO Last administered on 03/24/17at 07: 57; Start 03/14/17 at 21:00; Stop 03/24/17 at 11:51; Status DC Zolpidem Tartrate (Ambien) 10 mg PRN QHS PRN PO INSOMNIA Last administered on at 20:04; Start 03/15/17 at 21:00; Stop 03/24/17 at 11:51; Status DC Citalopram Hydrobromide (CeleXA) 40 mg DAILY PO Last administered on 03/18/17at 08:13; Start 03/16/17 at 09:00; Stop 03/18/17 at 21:44; Status DC Duloxetine HCl (Cymbalta) 30 mg DAILY PO Last administered on 03/20/17at 07:55; Start 03/19/17 at 09:00; Stop 03/20/17 at 09:01; Status DC Duloxetine HCl (Cymbalta) 60 mg DAILY PO Last administered on 03/24/17at 07:57; Start 03/21/17 at 09:00; Stop 03/24/17 at 11:51; Status DC Active Scripts Active Reported Hydrocodone-Apap 10-325 (Hydrocodone Bit/Acetaminophen) 1 Each Tablet 1 Tab PO PRN Q6HRS PRN Trazodone Hcl 150 Mg Tablet 150 Mg PO QHS Hydroxyzine Pamoate 25 Mg Capsule 25 Mg PO PRN Q4HRS PRN Klor-Con M20 (Potassium Chloride) 20 Meq Tab.er.prt 20 Meq PO TID Zofran Odt (Ondansetron) 4 Mg Tab.rapdis 4 Mg PO PRN Q8HRS PRN Metoprolol Tartrate 25 Mg Tablet 25 Mg PO BID Neurontin (Gabapentin) 300 Mg Capsule 300 Mg PO QHS Cymbalta (Duloxetine Hcl) 60 Mg Capsule.dr 60 Mg PO DAILY Vitamin D3 (Cholecalciferol (Vitamin D3)) 50,000 Unit Capsule 50,000 Unit PO WEEKLY Sinemet 25-100 Mg Tablet (Carbidopa/Levodopa) 1 Each Tablet 1 Tab PO TID Abilify (Aripiprazole) 5 Mg Tablet 2.5 Mg PO BID Ambien (Zolpidem Tartrate) 5 Mg Tablet 10 Mg PO PRN QHS PRN I have reviewed the current psychotropics carefully including drug interactions. Risk benefit ratio favors no change other than as noted in my dictated progress note. Diagnosis: Problems: (1) Depression (2) PSYCHOTIC DISORDER W DELUSIONS DUE TO KNOWN PHYSIOL COND (3) Major depressive disorder, recurrent episode (4) Anxiety disorder (5) Wrist fracture, right DANII,RAHEEM Hess Mar 25, 2017 20:33
--- NOTE | 2017-03-26 00:27 | PN ---
DATE: 03/23/2017 This late entry, 03/23/2017, covers elements not covered in my initial note of 03/23/2017. SUBJECTIVE: I met with the patient the evening of 03/23/2017. Overall per nursing report, she has been less depressed, calm, more outgoing, more interactive with staff and other patients participating in groups. Denies active suicidal ideation. REVIEW OF SYSTEMS: No CV, , pulmonary, eyes system symptoms on review. MENTAL STATUS EXAM: Oriented reasonably. Speech coherent, abstraction fair, computation impaired, language function intact. Mood and affect showing improvement. No active suicidal ideation. We discussed discharge plans to home and outpatient treatment at the [facility] to follow up with Dr. Mead. IMPRESSION: Major depressive disorder, recurrent. Bereavement. PLAN: Continue current psychotropics mentioned in my initial note. MAN Merced FOY MD DR: DIANA/dereck JOB#: [id number] / [id number]
== END 2017-03-24 11:22 | disposition home or self-care (01) | DRG 885 ==
LOC: ER 17:10 → GEROPSY 03-14 00:17
PROVIDERS: ADMIT Psychiatry & Neurology Psychiatry; ATTEND Psychiatry & Neurology Psychiatry
DX: F33.3 Major depressive disorder, recurrent, severe with psychotic symptoms (principal); G20 Parkinson's disease; R45.851 Suicidal ideations; N39.0 Urinary tract infection, site not specified; E55.9 Vitamin D deficiency, unspecified; E87.6 Hypokalemia; F41.1 Generalized anxiety disorder; F43.21 Adjustment disorder with depressed mood; G89.29 Other chronic pain; F11.11 Opioid abuse, in remission; K59.00 Constipation, unspecified; I10 Essential (primary) hypertension; Z63.4 Disappearance and death of family member; Z79.899 Other long term (current) drug therapy; Z81.8 Family history of other mental and behavioral disorders; Z82.0 Family history of epilepsy and other diseases of the nervous system; Z82.49 Family history of ischemic heart disease and other diseases of the circulatory system; Z91.81 History of falling; Z98.41 Cataract extraction status, right eye; Z98.42 Cataract extraction status, left eye; Z87.81 Personal history of (healed) traumatic fracture; Z76.5 Malingerer [conscious simulation]
CPT/HCPCS: 36415; 80053; 80061; 80307; 81001; 82306; 82607; 83036; 83540; 83550; 83690; 83735; 83880; 84436; 84443; 84480; 84484; 85025; 86593; 87086; 93005; G0480; Q0177; G0479

== ENCOUNTER 2018-12-20 13:47 | Emergency (ER) | payer OTHER, MEDICARE ==
[~2018-12-20] VITALS: Ht 157.5 cm; Wt 59.0 kg
[~2018-12-20 13:47] MED LIST changes: +ARIP5TAB13 PO; +CARB1TAB2 PO; +CHOL500050 PO; +DULO30CA2 PO; +DULO60CA6 PO; +GABA-586 PO; +HYDR-2155 PO; -HYDR-2758 PO; +HYDR-2769 PO; +HYDR-3165 PO; -HYDR-971 PO; +HYDR25CA75 PO; +METO25TA4 PO; +ONDA4TAB10 PO; +POTA20TA4 PO; +TRAZ-120 PO; +TRAZ150T49 PO; -TRAZ50TA15 PO
[2018-12-20 13:54] VITALS: BP 134/88
--- NOTE | 2018-12-20 14:27 | RAD ---
CT MAXILLOFACIAL WO CONTRAST History: Trauma. Pain. Comparison: None. Technique: Noncontrast CT imaging was performed of the maxillofacial. Coronal and sagittal reconstructions were performed. Exposure: One or more of the following individualized dose reduction techniques were utilized for this examination: 1. Automated exposure control 2. Adjustment of the mA and/or kV according to patient size 3. Use of iterative reconstruction technique. Findings: No acute maxillofacial fracture. Orbits are unremarkable. Polypoid mucosal thickening within the right maxillary sinus. Minimal left maxillary sinus mucosal thickening. Scattered partial pacification and thickening within the ethmoid sinuses. No air-fluid levels. Mastoid air cells are clear. Right maxillary premolar large periapical lucency extending into the right maxillary sinus. Multiple missing teeth. Ectopic right maxillary tooth extending along the right inferior maxillary wall. Additional carious dentition mandibular. Imaged intracranial contents are unremarkable. Water multilevel cervical spondylosis. Impression: 1. No acute maxillofacial fracture. 2. 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 3. Additional paranasal sinus disease. Electronically signed by: Festus Fairbanks DO (12/20/2018 2:24 PM) [id number]
[2018-12-20] MEDS ORDERED: AMOX1TAB61 PO (14:51)
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
== END 2018-12-20 14:56 | disposition home or self-care (01) ==
LOC: ER 13:47
DX: S10.91XA Abrasion of unspecified part of neck, initial encounter (principal); S00.83XA Contusion of other part of head, initial encounter; V43.52XA Car driver injured in collision with other type car in traffic accident, initial encounter; Y93.I9 Activity, other involving external motion; Y92.488 Other paved roadways as the place of occurrence of the external cause; Y99.8 Other external cause status
CPT/HCPCS: 70486; 99284-25

== ENCOUNTER 2019-05-16 21:03 | Emergency (ER) | payer MEDICARE, OTHER ==
[~2019-05-16] VITALS: Ht 157.5 cm; Wt 54.0 kg
[~2019-05-16 21:03] MED LIST changes: +AMOX1TAB61 PO
--- NOTE | 2019-05-16 21:10 | PHYS DOC ---
Past History Past Medical History: Anxiety, Bipolar, Depression, Other Additional Past Medical Histor: MOOD DISORDERS Past Medical History Pulmonary Nodule Lt. Upper Lobe- increase in size since 04/10/2011 Hx.prior pleural effusions Lt.side Past Surgical History: Other Additional Past Surgical Histo: RIGHT ARM SURGEYR Smoking: Non-smoker Alcohol Use: None Drug Use: None Adult General Chief Complaint Chief Complaint: "..I was in an argument with my son.. I don't remember what over... I did tell him I wanted to ...I got anxiety... and depression ... I was here before.. I get sad my is ... my older son .. I get depressed...." HPI HPI Patient is a 78 year old female who presents with hx of suicide ideation. Pt. states she was having an argument with her son. Does admit to threats of suicide during the argument. Pt. has had hx of anxiety, depression, b ipolar/manic depressive disorder, current bereavement, Parkinson disease, and chronic insomnia. Patient has had previous admission at our facility in February 2017 for exacerbation of her psychiatric issues. Patient denies any current plan development for suicide attempt. Pt. follows with Dr. Ryan as primary. Review of Systems Review of Systems Constitutional: Denies fever or chills [] Eyes: Denies change in visual acuity, redness, or eye pain [] HENT: Denies nasal congestion or sore throat [] Respiratory: Denies cough or shortness of breath [] Cardiovascular: No additional information not addressed in HPI [] GI: Denies abdominal pain, nausea, vomiting, bloody stools or diarrhea [] : Denies dysuria or hematuria [] Musculoskeletal: Denies back pain or joint pain [] Integument: Denies rash or skin lesions [] Neurologic: Denies headache, focal weakness or sensory changes [] Endocrine: Denies polyuria or polydipsia [] All other systems were reviewed and found to be within normal limits, except as documented in this note. Family History Family History Noncontributory Current Medications Current Medications See nursing for home meds Allergies Allergies Allergies Coded Allergies Type Severity Reaction Last Updated Verified No Known Drug Allergies 10/24/13 No Physical Exam Physical Exam Constitutional: Moderate acute emotional distress, non-toxic appearance. [] HENT: Normocephalic, atraumatic, bilateral external ears normal, oropharynx moist, no oral exudates, nose normal. [] Eyes: PERRLA, EOMI, conjunctiva normal, no discharge. [] Neck: Normal range of motion, no tenderness, supple, no stridor. [] Cardiovascular:Heart rate regular rhythm, no murmur [] Lungs & Thorax: Bilateral breath sounds clear to auscultation [] Abdomen: Bowel sounds normal, soft, no tenderness, no masses, no pulsatile masses. [] Skin: Warm, dry, no erythema, no rash. [] Back: No tenderness, no CVA tenderness. [] Extremities: No tenderness, no cyanosis, no clubbing, ROM intact, no edema. [] Scar right arm.. and Lt. ankle. Arthritic changes. Neurologic: Alert and oriented X 3, moves all extremities on request. Has distal sensory, no gross focal deficits noted. Tremor. Shuffling gait. DTRs +2 patella and brachial. Psychologic: Affect anxious, depressed, , judgement appears to have some memory [id number], mood depressed. EKG EKG My interpretation EKG shows a sinus rate of 65 bpm. Leftward axis. Slightly prolonged QT interval at 484 ms and QTc interval of 504 ms. Does have baseline artifact from her Parkinson tremor. The findings acute STEMI with contralateral changes.[] Radiology/Procedures Radiology/Procedures ReviewedCXR- ][place] [address] IMAGING REPORT Signed PATIENT: ANASTACIA RIVERA ACCOUNT: [id number] : 1940 LOCATION: ER AGE: 78 SEX: F EXAM STATUS: REG ER ORD. PHYSICIAN: SEVERO BARRIOS MD REASON: dyspnea PROCEDURE: PORTABLE CHEST 1V PORTABLE CHEST 1V History: Dyspnea Comparison: March 02, 2017 Findings: Single view of the chest is submitted. There is nodular opacity of the superior left hemithorax which has grown such as compared with 2012 exam. There is again tortuous thoracic aorta. There is no new lobar consolidation, pleural fluid, or pneumothorax. There is again intramedullary elizabeth and also fixation plate and screws of the visualized right humerus. Heart size is stable. Impression: 1. No acute radiographic abnormality is identified. 2. There is a nodular opacity of the superior left hemithorax which has grown over time better characterized by nonemergent CT. Electronically signed by: Yonathan Aguilar MD (05/16/2019 9:38 PM) [facility] DICTATED AND SIGNED BY: YONATHAN AGUILAR MD DATE: 05/16/192137 CC: SEVERO BARRIOS MD; CHRISTINE RYAN MD ~ Course & Med Decision Making Course & Med Decision Making Pertinent Labs and Imaging studies reviewed. (See chart for details) Tele psych. completing interview at 0020 hrs. Pt.to follow counseling center. See report QMHP/LMHP Pt. to followup with Dr Ryan and review prior CXR and CT. Review plan to evaluate the Lt.pulmonary nodule that has increased in size from our records of CXR of 04/10/2011 Impression: 1. Suicidal Threats and Ideation 2. Lt. upper Lobe Pulmonary nodular which has increased in size since 04/10/2011- 3. Hx. Bipolar Disorder 4. Hx. of Depression 5.Hx. Anxiety Disorder 6.Hx. of Lt Pleural Eff. 7. Parkinson Dz [] Dragon Disclaimer Dragon Disclaimer This electronic medical record was generated, in whole or in part, using a voice recognition dictation system. Departure Departure: Disposition: 01 HOME/RESIDENCE PRIOR TO ADM Condition: STABLE Referrals: CHRISTINE RYAN MD (PCP) Dragon Disclaimer This chart was dictated in whole or in part using Voice Recognition software in a busy, high-work load, and often noisy Emergency Department environment. It may contain unintended and wholly unrecognized errors or omissions. Dragon Disclaimer This chart was dictated in whole or in part using Voice Recognition software in a busy, high-work load, and often noisy Emergency Department environment. It may contain unintended and wholly unrecognized errors or omissions. SEVERO BARRIOS MD May 16, 2019 21:10
--- NOTE | 2019-05-16 21:41 | RAD ---
PORTABLE CHEST 1V History: Dyspnea Comparison: March 02, 2017 Findings: Single view of the chest is submitted. There is nodular opacity of the superior left hemithorax which has grown such as compared with 2012 exam. There is again tortuous thoracic aorta. There is no new lobar consolidation, pleural fluid, or pneumothorax. There is again intramedullary elizabeth and also fixation plate and screws of the visualized right humerus. Heart size is stable. Impression: 1. No acute radiographic abnormality is identified. 2. There is a nodular opacity of the superior left hemithorax which has grown over time better characterized by nonemergent CT. Electronically signed by: Patrick Aguilar MD (05/16/2019 9:38 PM) [facility]
[2019-05-16 22:01] LABS: BASO % 0 % (0-3); EOS # 0.8 x10^3/uL (0.0-0.7); EOS % 9 % (0-3); HEMATOCRIT 41.8 % (36.0-47.0); HEMOGLOBIN 14.1 g/dL (12.0-15.5); LYMPH # 2.5 x10^3/uL (1.0-4.8); LYMPH % 29 % (24-48); MEAN CORPUSCULAR HEMOGLOBIN 33 pg (25-35); MEAN CORPUSCULAR HGB CONC 34 g/dL (31-37); MEAN CORPUSCULAR VOLUME 98 fL (79-100); MONO # 0.5 x10^3/uL (0.0-1.1); MONO % 6 % (0-9); NEUT # 4.7 x10^3uL (1.8-7.7); NEUT % 55 % (31-73); PLATELET COUNT 202 x10^3/uL (140-400); RED BLOOD COUNT 4.28 x10^6/uL (3.50-5.40); RED CELL DISTRIBUTION WIDTH 13.5 % (11.5-14.5); WHITE BLOOD COUNT 8.5 x10^3/uL (4.0-11.0)
[2019-05-16 22:10] LABS: SALIC < 2.8 mg/dL (2.8-20.0)
[2019-05-16 22:11] LABS: CALCIUM 9.4 mg/dL (8.5-10.1); CREATININE 0.6 mg/dL (0.6-1.0); GFR 97.2; POTASSIUM 4.9 mmol/L (3.5-5.1)
[2019-05-16 22:14] LABS: ACETAMIN < 2.0 mcg/mL (10-30)
[2019-05-16 22:26] LABS: ALBUMIN 4.2 g/dL (3.4-5.0); DIRECT BILIRUBIN 0.2 mg/dL (0.0-0.2); MAGNESIUM 2.2 mg/dL (1.8-2.4); TOTAL BILIRUBIN 0.6 mg/dL (0.2-1.0); TOTAL PROTEIN 8.2 g/dL (6.4-8.2)
[2019-05-16 23:44] LABS: SEDIMENTATION RATE 29 (0-25)
[2019-05-17 01:31] VITALS: BP 149/89
[2019-05-17 01:35] LABS: BACTERIA,URINE FEW /HPF (0-FEW); BILIRUBIN,URINE NEG (NEG); CLARITY,URINE CLEAR; COLOR,URINE YELLOW; GLUCOSE,URINE NEG (NEG); NITRITE,URINE NEG (NEG); RBC,URINE 0 /HPF (0-2); SQUAMOUS EPITHELIAL CELL,UR FEW /LPF; WBC,URINE 0 /HPF (0-4)
[2019-05-17 01:40] LABS: BARBITURATES NEG (NEG); BENZODIAZEPINES NEG (NEG); CANNABINOIDS NEG (NEG); COCAINE NEG (NEG); METHADONE NEG (NEG); OPIATES NEG (NEG); PHENCYCLIDINE NEG (NEG)
[2019-05-17 01:42] LABS: AMPHETAMINE/METHAMPHETAMINE NEG (NEG)
--- NOTE | 2019-05-19 11:57 | EKG ---
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
== END 2019-05-17 01:45 | disposition home or self-care (01) ==
LOC: ER 21:03
DX: R45.851 Suicidal ideations (principal); R91.1 Solitary pulmonary nodule; F31.9 Bipolar disorder, unspecified; F41.9 Anxiety disorder, unspecified; G20 Parkinson's disease
CPT/HCPCS: 36415; 71045; 80048; 80076; 80307; 80329; 81001; 82550; 83690; 83735; 83880; 84443; 84484; 85025; 85379; 85610; 85651; 85730; 93005; 99285; G0480; 82003

== ENCOUNTER 2019-06-12 09:55 | Emergency (ER) | payer MEDICARE ==
[~2019-06-12] VITALS: Ht 157.5 cm; Wt 51.8 kg
--- NOTE | 2019-06-12 10:06 | PHYS DOC ---
Past History Past Medical History: Anxiety, Bipolar, Depression, Other Additional Past Medical Histor: Parkinsons Past Surgical History: Other Additional Past Surgical Histo: shoulder surgery Smoking: Non-smoker Alcohol Use: Occasionally Drug Use: None General Adult EDM: Chief Complaint: SHORTNESS OF BREATH HPI: HPI: Patient is a 78-year-old female who presents to the emergency department via EMS complaining of some shortness of breath and a nonproductive cough for the past 3 to 4 hours. She reports a history of anxiety and depression, and Parkinson's disease, but denies any other medical history. She has not had any chest pain, fevers, chills, myalgias, nausea, vomiting, or diarrhea. She does not have any known sick contacts. There are no alleviating or exacerbating factors to her symptoms. Review of Systems: Review of Systems: Constitutional: Denies fever or chills Eyes: Denies change in visual acuity HENT: Denies nasal congestion or sore throat Respiratory: As per HPI Cardiovascular: Denies chest pain or edema GI: Denies abdominal pain, nausea, vomiting, bloody stools or diarrhea : Denies dysuria Musculoskeletal: Denies back pain or joint pain Integument: Denies rash Neurologic: Denies headache, focal weakness or sensory changes Endocrine: Denies polyuria or polydipsia Lymphatic: Denies swollen glands Psychiatric: Denies depression or anxiety Heart Score: Risk Factors: Risk Factors: DM, Current or recent (<one month) smoker, HTN, HLP, family history of CAD, obesity. Risk Scores: Score 0 - 3: 2.5% MACE over next 6 weeks - Discharge Home Score 4 - 6: 20.3% MACE over next 6 weeks - Admit for Clinical Observation Score 7 - 10: 72.7% MACE over next 6 weeks - Early Invasive Strategies Allergies: Allergies: Allergies Coded Allergies Type Severity Reaction Last Updated Verified No Known Drug Allergies 10/24/13 No Physical Exam: PE: PHYSICAL EXAM: CONSTITUTIONAL: Well developed, well nourished HEAD: normocephalic, atraumatic EENT: PERRL, EOMI. Conjunctivae normal color, sclerae non-icteric; moist mucous membranes. NECK: Supple, non-tender; no meningismus. LUNGS: There are questionable rhonchi in the left lung base, otherwise lungs CTA, breathing even and unlabored. Normal air movement. HEART: Regular rate and rhythm, no murmur CHEST: No deformity; non-tender ABDOMEN: The abdomen is soft, and non-tender, no masses or bruits. EXTREM: Normal ROM; no deformity, no calf tenderness. Normal pulses palpable in all extremities. There is no pedal edema. SKIN: No rash; no diaphoresis NEURO: Alert; normal speech and cognition; CN's grossly intact; strength grossly intact without focal deficit. There is a tremor present BACK: No CVA TTP. PSYCHIATRIC: Patient appears moderately anxious. Current Patient Data: Labs: Laboratory Tests Test 06/12/19 10:19 06/12/19 10:40 06/12/19 12:05 White Blood Count 6.7 x10^3/uL Red Blood Count 4.13 x10^6/uL Hemoglobin 13.7 g/dL Hematocrit 40.8 % Mean Corpuscular Volume 99 fL Mean Corpuscular Hemoglobin 33 pg Mean Corpuscular Hemoglobin Concent 34 g/dL Red Cell Distribution Width 13.4 % Platelet Count 198 x10^3/uL Neutrophils (%) (Auto) 71 % Lymphocytes (%) (Auto) 22 % Monocytes (%) (Auto) 6 % Eosinophils (%) (Auto) 1 % Basophils (%) (Auto) 0 % Neutrophils # (Auto) 4.8 x10^3uL Lymphocytes # (Auto) 1.4 x10^3/uL Monocytes # (Auto) 0.4 x10^3/uL Eosinophils # (Auto) 0.1 x10^3/uL Basophils # (Auto) 0.0 x10^3/uL Sodium Level 139 mmol/L Potassium Level 4.1 mmol/L Chloride Level 102 mmol/L Carbon Dioxide Level 28 mmol/L Anion Gap 9 Blood Urea Nitrogen 8 mg/dL Creatinine 0.7 mg/dL Estimated GFR (Cockcroft-Gault) 81.4 BUN/Creatinine Ratio 11 Glucose Level 126 mg/dL Calcium Level 9.5 mg/dL Total Bilirubin 0.6 mg/dL Aspartate Amino Transf (AST/SGOT) 27 U/L Alanine Aminotransferase (ALT/SGPT) 34 U/L Alkaline Phosphatase 72 U/L Troponin I Quantitative < 0.017 ng/mL C-Reactive Protein < 0.5 mg/L NO-Zsf-M-Type Natriuretic Peptide 91 pg/mL Total Protein 8.3 g/dL Albumin 4.1 g/dL Albumin/Globulin Ratio 1.0 Prothrombin Time 9.6 SEC Prothromb Time International Ratio 0.9 Urine Collection Type Unknown Urine Color Colorless Urine Clarity Clear Urine pH 6.5 Urine Specific [place] <=1.005 Urine Protein Neg Urine Glucose (UA) Neg mg/dL Urine Ketones (Stick) Neg mg/dL Urine Blood Neg Urine Nitrite Neg Urine Bilirubin Neg Urine Urobilinogen Dipstick 0.2 mg/dL Urine Leukocyte Esterase Neg Urine RBC Rare /HPF Urine WBC Occ /HPF Urine Squamous Epithelial Cells Few /LPF Urine Bacteria 0 /HPF EKG: EKG: Normal sinus rhythm at a rate of 83 bpm, normal axis, normal intervals, nonspecific ST/T changes are present. EKG is unchanged compared to the patient's prior EKG. Radiology/Procedures: Radiology/Procedures: PROCEDURE: PORTABLE CHEST 1V Examination: PORTABLE CHEST 1V History: Shortness of breath Comparison/Correlation: 01/05/2015 two-view chest x-ray exam, 03/02/2017 portable chest x-ray, 05/16/2019 Portable Chest X-ray Exam Findings: Frontal view of the chest was obtained. Surgical clips are present in the left lung base. Heart size is normal. No pneumothorax. Nodular density involving the left upper lung field is present measuring up to 1.4 cm diameter and is similar compared to prior exams. Minimal interstitial thickening of the left lung base similar to prior exams. Subtle interstitial thickening at the right lateral and lower thoracic level noted and similar performed relation to 03/02/2017. No pneumothorax. Upper abdominal surgical clips are present. Impression: Left upper lung nodule is stable. Interstitial thickening is similar to prior exams. No new infiltrates. [] Course & Med Decision Making: Course & Med Decision Making Pertinent Labs and Imaging studies reviewed. (See chart for details) [] 12:45 PM: The patient's condition remained stable. She is ambulatory without any acute complaints at this time. I discussed expectant management, home care plan, need for close follow-up, pending test results, and return precautions. Dragon Disclaimer: Dragon Disclaimer: This electronic medical record was generated, in whole or in part, using a voice recognition dictation system. Departure Departure: Impression: Primary Impression: Anxiety disorder Additional Impression: Weakness Disposition: 01 HOME, SELF-CARE Condition: STABLE Referrals: CHRISTINE RYAN MD (PCP) Patient Instructions: Anxiety and Panic Attacks, Weakness LLUVIA MARTINEZ MD Jun 12, 2019 10:05
--- NOTE | 2019-06-12 10:27 | RAD ---
Examination: PORTABLE CHEST 1V History: Shortness of breath Comparison/Correlation: 01/05/2015 two-view chest x-ray exam, 03/02/2017 portable chest x-ray, 05/16/2019 Portable Chest X-ray Exam Findings: Frontal view of the chest was obtained. Surgical clips are present in the left lung base. Heart size is normal. No pneumothorax. Nodular density involving the left upper lung field is present measuring up to 1.4 cm diameter and is similar compared to prior exams. Minimal interstitial thickening of the left lung base similar to prior exams. Subtle interstitial thickening at the right lateral and lower thoracic level noted and similar performed relation to 03/02/2017. No pneumothorax. Upper abdominal surgical clips are present. Impression: Left upper lung nodule is stable. Interstitial thickening is similar to prior exams. No new infiltrates. Electronically signed by: Rishabh Doran MD (06/12/2019 10:24 AM) [id number]
[2019-06-12 10:38] LABS: BASO % 0 % (0-3); EOS # 0.1 x10^3/uL (0.0-0.7); EOS % 1 % (0-3); HEMATOCRIT 40.8 % (36.0-47.0); HEMOGLOBIN 13.7 g/dL (12.0-15.5); LYMPH # 1.4 x10^3/uL (1.0-4.8); LYMPH % 22 % (24-48); MEAN CORPUSCULAR HEMOGLOBIN 33 pg (25-35); MEAN CORPUSCULAR HGB CONC 34 g/dL (31-37); MEAN CORPUSCULAR VOLUME 99 fL (79-100); MONO # 0.4 x10^3/uL (0.0-1.1); MONO % 6 % (0-9); NEUT # 4.8 x10^3uL (1.8-7.7); NEUT % 71 % (31-73); PLATELET COUNT 198 x10^3/uL (140-400); RED BLOOD COUNT 4.13 x10^6/uL (3.50-5.40); RED CELL DISTRIBUTION WIDTH 13.4 % (11.5-14.5); WHITE BLOOD COUNT 6.7 x10^3/uL (4.0-11.0)
[2019-06-12 10:46] LABS: ANION GAP 9 (6-14); BLOOD UREA NITROGEN 8 mg/dL (7-20); BUN/CREATININE RATIO 11 (6-20); CALCIUM 9.5 mg/dL (8.5-10.1); CARBON DIOXIDE 28 mmol/L (21-32); CHLORIDE 102 mmol/L (98-107); CREATININE 0.7 mg/dL (0.6-1.0); GFR 81.4; GLUCOSE 126 mg/dL (70-99); POTASSIUM 4.1 mmol/L (3.5-5.1); SODIUM 139 mmol/L (136-145)
[2019-06-12 10:59] LABS: ALBUMIN 4.1 g/dL (3.4-5.0); ALK PHOS 72 U/L (46-116); ALT (SGPT) 34 U/L (14-59); AST (SGOT) 27 U/L (15-37); TOTAL BILIRUBIN 0.6 mg/dL (0.2-1.0); TOTAL PROTEIN 8.3 g/dL (6.4-8.2)
[2019-06-12 11:04] LABS: C REACTIVE PROTEIN < 0.5 mg/L (0-3.3)
[2019-06-12 11:16] VITALS: BP 155/100
--- NOTE | 2019-06-12 11:38 | EKG ---
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
[2019-06-12 12:31] LABS: BACTERIA,URINE 0 /HPF (0-FEW); BILIRUBIN,URINE NEG (NEG); CLARITY,URINE CLEAR; COLOR,URINE COLORLESS; GLUCOSE,URINE NEG (NEG); NITRITE,URINE NEG (NEG); RBC,URINE RARE /HPF (0-2); SQUAMOUS EPITHELIAL CELL,UR FEW /LPF; UROBILINOGEN,URINE 0.2 mg/dL (0.2 mg/dL); WBC,URINE OCC /HPF (0-4)
[2019-06-12] MEDS ORDERED: LORazepam 1 MG TABLET PO ONE (13:00)
== END 2019-06-12 13:03 | disposition home or self-care (01) ==
LOC: ER 09:55
DX: F41.9 Anxiety disorder, unspecified (principal); R53.1 Weakness; Z20.828 Contact with and (suspected) exposure to other viral communicable diseases; F31.9 Bipolar disorder, unspecified; G20 Parkinson's disease
CPT/HCPCS: 36415; 71045; 80053; 81001; 82728; 83880; 84484; 85025; 85610; 86140; 87635; 93005; 99285-25

== ENCOUNTER 2019-07-08 01:16 | Emergency (ER) | payer MEDICARE ==
[~2019-07-08] VITALS: Ht 157.5 cm; Wt 52.0 kg
--- NOTE | 2019-07-08 01:22 | PHYS DOC ---
Past History Past Medical History: Anxiety, Arthritis, Bipolar, Dementia, Depression, Hypertension, Other Past Medical History Parkinson, weakness Past Surgical History: Other Past Surgical History Right humerus repair-hardware, pulmonary nodules, Chest /cardiac surgery= pt.unsure General Adult HPI: HPI: "..I hurt..down here...my leg...my hip...I hurt 4...5 days.. " Pt. 78-year-old female [place] descent that complains of severe Lt. hip, leg and lower back pain. Patient reports pain started 4 to 5 days ago. Patient however a very poor historian. Patient does have a history of Parkinson's, bipolar disorder, pulmonary embolisms, DVT, dementia, depression, back surgery, foot surgery, cataract surgery, pulmonary nodule, arthritis, and deconditioning. Pain appears to originate and follows the course of the Lt. sciatic nerve. However patient has significant pain with movement of left hip and leg. Patient is somewhat a very poor historian does not give history of prior blood clots or pulmonary embolisms. Patient has had history of recent falls. The patient is unsure of her meds. Initially patient was checked and under a different name Jocy Rivera. Will attempt to obtain further history from family.-Messages left with son at [phone]. Patient normally follows with Dr. Ryan. Patient looks familiar and there is history that she may have been admitted to [facility] for an episode of depression 2 years ago. Review of Systems: Review of Systems: Constitutional: Denies fever or chills Eyes: Denies change in visual acuity HENT: Denies nasal congestion or sore throat Respiratory: Denies cough or shortness of breath Cardiovascular: Denies chest pain or edema GI: Denies abdominal pain, nausea, vomiting, bloody stools or diarrhea : Denies dysuria Musculoskeletal: Patient complaining of severe left hip pain, and mid to lower lumbar back pain. Integument: Denies rash Neurologic: Denies headache, focal weakness or sensory changes Endocrine: Denies polyuria or polydipsia Lymphatic: Denies swollen glands Psychiatric: Denies depression or anxiety Heart Score: HEART Score for Chest Pain: HEART Score for Chest Pain Response (Comments) Value History Slighlty/Non-Suspicious 0 Age > 65 2 Risk Factors 1 or 2 Risk Factors 1 Troponin < Normal Limit 0 Total 3 Risk Factors: Risk Factors: DM, Current or recent (<one month) smoker, HTN, HLP, family history of CAD, obesity. Risk Scores: Score 0 - 3: 2.5% MACE over next 6 weeks - Discharge Home Score 4 - 6: 20.3% MACE over next 6 weeks - Admit for Clinical Observation Score 7 - 10: 72.7% MACE over next 6 weeks - Early Invasive Strategies Family History: Family History: Not currently available-patient extremely poor historian. Reports had several sons. One lives in [facility]. Current Medications: Current Meds: See nursing for home medications Allergies: Allergies: No known drug allergies Physical Exam: PE: Constitutional: Moderate acute distress, non-toxic appearance. [] HENT: Normocephalic, atraumatic, bilateral external ears normal, oropharynx moist, no oral exudates, nose normal. [] Eyes: PERRLA, EOMI, conjunctiva normal, no discharge. [] Neck: Normal range of motion, no tenderness, supple, no stridor. [] Cardiovascular: Bradycardic heart rate regular rhythm, no murmur [] Lungs & Thorax: Bilateral breath sounds equal at apex auscultation []. Patient has some basilar crackles Abdomen: Bowel sounds normal, soft, no tenderness, no masses, no pulsatile masses. Old surgery scars Skin: Warm, dry, no erythema, no rash. [] Back: Left lumbar tenderness, no CVA tenderness. Kyphosis. Pain along Lt. sciatic nerve. Extremities: Left hip tenderness, no cyanosis, no clubbing, ROM , but marked pain on movement of Lt. hip, no edema. [] Skin surgical scars right humerus. No coding appreciated. Neurologic: Alert and oriented X 3, moves all extremities on request , however complains of severe pain with movement of left hip, has distal sensory function, has tremor. Is able to sign her name in Chinese and French. Psychologic: Affect anxious, obvious some issues with memory EKG: EKG: My interpretation of EKG shows a sinus rhythm at 64 bpm. No findings of acute morphology or contralateral strain changes. [] Radiology/Procedures: Radiology/Procedures: Signed PATIENT: ANASTACIA RIVERA ACCOUNT: [id number] : 1940 LOCATION: ER AGE: 78 SEX: F EXAM STATUS: REG ER ORD. PHYSICIAN: SEVERO BARRIOS MD REASON: Lower back and pelvic pain. Hx: Parkinsons PROCEDURE: CT LUMBAR SPINE WO CONTRAST EXAM: 1. CT lumbar spine without contrast. 2. CT pelvis without contrast. HISTORY: Low back and pelvic pain. TECHNIQUE: CT of the lumbar spine and pelvis was performed without intravenous contrast. One or more of the following individualized dose reduction techniques were utilized for this examination: 1. Automated exposure control. 2. Adjustment of the mA and/or kV according to patient size. 3. Use of iterative reconstruction technique. COMPARISON: None. FINDINGS: There is is a severe compression deformity resulting in vertebra plana at L1. A residual fracture cleft is present anteriorly. Retropulsion of the superior aspect of the vertebral body measures 5 mm. This results in moderate central canal stenosis at T12-L1. There is mild focal kyphosis. No additional fractures are identified. Degenerative disc disease is moderate to severe at L3-4 and mild to moderate elsewhere. L5-S1 is preserved. Osteopenia is at least moderate. At L1-2, central canal stenosis is mild. Neural foraminal stenosis is mild to moderate bilaterally. At L2-3, there is a small posterior disc bulge. There is mild to moderate left neural foraminal stenosis. At L3-4, there is a small posterior disc bulge. Facet and ligamentum flavum hypertrophy is mild. Central canal stenosis appears mild. There is mild to moderate left neural foraminal stenosis. At L4-5, there is a moderate posterior disc bulge. Facet and ligamentum flavum hypertrophy is moderate. Central canal stenosis appears moderate. At L5-S1, there is a small posterior disc bulge. Facet osteoarthritis is moderate. No pelvic fractures are identified. There is no fracture within either proximal femur. Sacroiliac osteoarthritis is mild bilaterally. The joint spaces of both hips are maintained. There is mildly decreased femoral head/neck offset bilaterally. There is no acetabular retroversion. A prominent left inguinal lymph node measures 15 x 11 mm. No other enlarged nodes are seen. The uterus is surgically absent. The bladder is decompressed by a Hanna catheter. A surgical clip is noted in the left lower quadrant. IMPRESSION: 1. Severe compression fracture at T12 with a residual open fracture cleft. This results in mild focal kyphosis and moderate central canal stenosis at T12-L1. 2. Additional central canal stenosis is up to moderate at L4-5. MRI could further assess stenosis if there is persistent concern. 3. No pelvic fractures are identified. 4. Prominent left inguinal lymph node. Correlate for left lower extremity inflammation or other causes. Electronically signed by: Ash Ferguson MD (07/08/2019 4:39 AM) [facility] DICTATED AND SIGNED BY: MAHI FERGUSON MD DATE: 07/08/193 CC: SEVERO BARRIOS MD; CHRISTINE RYAN MD ~ [address] [address] IMAGING REPORT Signed PATIENT: ANASTACIA RIVERA ACCOUNT: [id number] : 1940 LOCATION: ER AGE: 78 SEX: F EXAM STATUS: REG ER ORD. PHYSICIAN: SEVERO BARRIOS MD REASON: Chest pain, weakness. Hx: Parkinsons PROCEDURE: PORTABLE CHEST 1V EXAM: CHEST ONE VIEW. HISTORY: Chest pain, weakness. COMPARISON: None. FINDINGS: A frontal view of the chest is obtained. A nodule in the left upper lobe measures 1.3 cm and likely reflects a calcified granuloma. There are surgical clips in the left base. There are mild airspace opacities in the right perihilar region. Linear opacities in left base most likely indicate atelectasis. There is no pneumothorax or pleural effusion. The heart is not enlarged. There are changes of internal fixation of a right humeral fracture. IMPRESSION: 1. Mild right perihilar infiltrate. 2. 1.3 cm left upper lobe nodule, likely a calcified granuloma. Correlate with older studies to confirm long-term stability. Electronically signed by: Ash Ferguson MD (07/08/2019 4:42 AM) [facility] DICTATED AND SIGNED BY: MAHI FERGUSON MD DATE: 07/08/19441 CC: SEVERO BARRIOS MD; CHRISTINE RYAN MD ~ [address] [address] IMAGING REPORT Signed PATIENT: ANASTACIA RIVERA ACCOUNT: [id number] : 1940 LOCATION: ER AGE: 78 SEX: F EXAM STATUS: REG ER ORD. PHYSICIAN: SEVERO BARRIOS MD REASON: Chest pain, weakness. Hx: Parkinsons PROCEDURE: PORTABLE CHEST 1V EXAM: CHEST ONE VIEW. HISTORY: Chest pain, weakness. COMPARISON: None. FINDINGS: A frontal view of the chest is obtained. A nodule in the left upper lobe measures 1.3 cm and likely reflects a calcified granuloma. There are surgical clips in the left base. There are mild airspace opacities in the right perihilar region. Linear opacities in left base most likely indicate atelectasis. There is no pneumothorax or pleural effusion. The heart is not enlarged. There are changes of internal fixation of a right humeral fracture. IMPRESSION: 1. Mild right perihilar infiltrate. 2. 1.3 cm left upper lobe nodule, likely a calcified granuloma. Correlate with older studies to confirm long-term stability. Electronically signed by: Ash Ferguson MD (07/08/2019 4:42 AM) [facility] DICTATED AND SIGNED BY: MAHI FERGUSON MD DATE: 07/08/19441 CC: SEVERO BARRIOS MD; CHRISTINE RYAN MD ~ [][place] [address] IMAGING REPORT Signed PATIENT: ANASTACIA RIVERA ACCOUNT: [id number] : 1940 LOCATION: ER AGE: 78 SEX: F EXAM STATUS: REG ER ORD. PHYSICIAN: SEVERO BARRIOS MD REASON: Headache, weakness. Hx: Parkinsons PROCEDURE: CT HEAD WO CONTRAST EXAM: CT HEAD WITHOUT CONTRAST. HISTORY: Headache, weakness, Parkinson's. TECHNIQUE: Computed tomography of the head was performed without intravenous contrast. One or more of the following individualized dose reduction techniques were utilized for this examination: 1. Automated exposure control. 2. Adjustment of the mA and/or kV according to patient size. 3. Use of iterative reconstruction technique. COMPARISON: None. FINDINGS: There is no intracranial hemorrhage. Hypoattenuation within the periventricular white matter indicates mild chronic microangiopathic change. Note is made of a incidental choroidal fissure cyst on the left. There are bilateral basal ganglia calcifications. Prominence of the lateral ventricles and hemispheric sulci indicates mild atrophy.1` There is mucosal thickening scattered throughout the ethmoid air cells. There are changes of right cataract surgery. The temporal bones are unremarkable. The calvarium reveals no suspicious lesions. There are atherosclerotic calcifications of the internal carotid and vertebral arteries. IMPRESSION: 1. No acute intracranial findings. 2. Mild atrophy and chronic microangiopathic white matter change. Electronically signed by: Ash Ferguson MD (07/08/2019 4:25 AM) [facility] DICTATED AND SIGNED BY: MAHI FERGUSON MD DATE: 07/08/19424 CC: SEVERO BARRIOS MD; CHRISTINE RYAN MD ~ Course & Med Decision Making: Course & Med Decision Making Pertinent Labs and Imaging studies reviewed. (See chart for details) No return from messages left with Son- [phone]. 0430 hrs. Discussed presentation, testing and treatment plan with Dr. Maddox will accept patient at [facility] for further evaluation and an MRI of the spine. If compression fracture found to be acute, possible candidate for vertebroplasty. Files to be merged on pt. Impression: 1. Lt.Hip Pain and back pain-possible left hip impingement syndrome versus exacerbation of a compression fracture at T12 and central canal stenosis T12-L1 2. History of Parkinson's 3. History of dementia 4. Pulmonary nodule 5. Hx.Depression and Bipolar 6. Hx. Arthritis 7. Hx. Anxiety 8. Hx. DVT and PE [] Dragon Disclaimer: Dragon Disclaimer: This electronic medical record was generated, in whole or in part, using a voice recognition dictation system. Departure Departure: Disposition: 01 HOME/RESIDENCE PRIOR TO ADM Condition: STABLE Dragon Disclaimer This chart was dictated in whole or in part using Voice Recognition software in a busy, high-work load, and often noisy Emergency Department environment. It may contain unintended and wholly unrecognized errors or omissions. SEVERO BARRIOS MD July 08, 2019 01:22
[2019-07-08] MEDS ORDERED: IV RINGERS SOLUTION,LACTATED 1,000 ML IV SCH (02:15)
--- NOTE | 2019-07-08 02:18 | EKG ---
[address] [address] Test Date: 2019-07-08 Test Time: 02:08:26 Pat Name: ANASTACIA RIVERA Department: Room: Gender: F Sketch Liner: : 1940 Requested By: SEVERO BARRIOS Order Number: [id number] Reading MD: Measurements Intervals [place] Rate: 64 P: 50 AK: 212 QRS: 4 QRSD: 82 T: 57 QT: 438 QTc: 452 Interpretive Statements SINUS RHYTHM NORMAL ECG RI6.02 No previous ECG available for comparison
[2019-07-08 03:08] LABS: BASO % 0 % (0-3); EOS # 0.4 x10^3/uL (0.0-0.7); EOS % 6 % (0-3); HEMATOCRIT 42.2 % (36.0-47.0); HEMOGLOBIN 14.5 g/dL (12.0-15.5); LYMPH # 1.7 x10^3/uL (1.0-4.8); LYMPH % 28 % (24-48); MEAN CORPUSCULAR HEMOGLOBIN 34 pg (25-35); MEAN CORPUSCULAR HGB CONC 34 g/dL (31-37); MEAN CORPUSCULAR VOLUME 99 fL (79-100); MONO # 0.4 x10^3/uL (0.0-1.1); MONO % 7 % (0-9); NEUT # 3.7 x10^3uL (1.8-7.7); NEUT % 59 % (31-73); PLATELET COUNT 218 x10^3/uL (140-400); RED BLOOD COUNT 4.27 x10^6/uL (3.50-5.40); RED CELL DISTRIBUTION WIDTH 13.5 % (11.5-14.5); WHITE BLOOD COUNT 6.2 x10^3/uL (4.0-11.0)
[2019-07-08 03:13] LABS: BILIRUBIN,URINE NEG (NEG); CLARITY,URINE CLEAR; COLOR,URINE YELLOW; GLUCOSE,URINE NEG (NEG)
[2019-07-08 03:14] LABS: BACTERIA,URINE 0 /HPF (0-FEW); NITRITE,URINE NEG (NEG); RBC,URINE 0 /HPF (0-2); SQUAMOUS EPITHELIAL CELL,UR OCC /LPF; UROBILINOGEN,URINE 0.2 mg/dL (0.2 mg/dL); WBC,URINE RARE /HPF (0-4)
[2019-07-08 03:24] LABS: CALCIUM 9.6 mg/dL (8.5-10.1); CREATININE 0.7 mg/dL (0.6-1.0); GFR 81.4; POTASSIUM 3.9 mmol/L (3.5-5.1)
[2019-07-08 03:26] LABS: BARBITURATES NEG (NEG); BENZODIAZEPINES NEG (NEG); CANNABINOIDS NEG (NEG); COCAINE NEG (NEG); METHADONE NEG (NEG); OPIATES NEG (NEG); PHENCYCLIDINE NEG (NEG)
[2019-07-08 03:28] LABS: AMPHETAMINE/METHAMPHETAMINE NEG (NEG)
[2019-07-08 03:36] LABS: ALBUMIN 4.6 g/dL (3.4-5.0); DIRECT BILIRUBIN 0.2 mg/dL (0.0-0.2); MAGNESIUM 2.3 mg/dL (1.8-2.4); TOTAL BILIRUBIN 0.8 mg/dL (0.2-1.0); TOTAL PROTEIN 8.7 g/dL (6.4-8.2)
[2019-07-08] MEDS ORDERED: KETOROLAC 15 MG/ML VIAL. IVP ONE (04:00)
--- NOTE | 2019-07-08 04:28 | RAD ---
EXAM: CT HEAD WITHOUT CONTRAST. HISTORY: Headache, weakness, Parkinson's. TECHNIQUE: Computed tomography of the head was performed without intravenous contrast. One or more of the following individualized dose reduction techniques were utilized for this examination: 1. Automated exposure control. 2. Adjustment of the mA and/or kV according to patient size. 3. Use of iterative reconstruction technique. COMPARISON: None. FINDINGS: There is no intracranial hemorrhage. Hypoattenuation within the periventricular white matter indicates mild chronic microangiopathic change. Note is made of a incidental choroidal fissure cyst on the left. There are bilateral basal ganglia calcifications. Prominence of the lateral ventricles and hemispheric sulci indicates mild atrophy.1` There is mucosal thickening scattered throughout the ethmoid air cells. There are changes of right cataract surgery. The temporal bones are unremarkable. The calvarium reveals no suspicious lesions. There are atherosclerotic calcifications of the internal carotid and vertebral arteries. IMPRESSION: 1. No acute intracranial findings. 2. Mild atrophy and chronic microangiopathic white matter change. Electronically signed by: Ash Ferguson MD (07/08/2019 4:25 AM) [facility]
--- NOTE | 2019-07-08 04:42 | RAD ---
EXAM: 1. CT lumbar spine without contrast. 2. CT pelvis without contrast. HISTORY: Low back and pelvic pain. TECHNIQUE: CT of the lumbar spine and pelvis was performed without intravenous contrast. One or more of the following individualized dose reduction techniques were utilized for this examination: 1. Automated exposure control. 2. Adjustment of the mA and/or kV according to patient size. 3. Use of iterative reconstruction technique. COMPARISON: None. FINDINGS: There is is a severe compression deformity resulting in vertebra plana at L1. A residual fracture cleft is present anteriorly. Retropulsion of the superior aspect of the vertebral body measures 5 mm. This results in moderate central canal stenosis at T12-L1. There is mild focal kyphosis. No additional fractures are identified. Degenerative disc disease is moderate to severe at L3-4 and mild to moderate elsewhere. L5-S1 is preserved. Osteopenia is at least moderate. At L1-2, central canal stenosis is mild. Neural foraminal stenosis is mild to moderate bilaterally. At L2-3, there is a small posterior disc bulge. There is mild to moderate left neural foraminal stenosis. At L3-4, there is a small posterior disc bulge. Facet and ligamentum flavum hypertrophy is mild. Central canal stenosis appears mild. There is mild to moderate left neural foraminal stenosis. At L4-5, there is a moderate posterior disc bulge. Facet and ligamentum flavum hypertrophy is moderate. Central canal stenosis appears moderate. At L5-S1, there is a small posterior disc bulge. Facet osteoarthritis is moderate. No pelvic fractures are identified. There is no fracture within either proximal femur. Sacroiliac osteoarthritis is mild bilaterally. The joint spaces of both hips are maintained. There is mildly decreased femoral head/neck offset bilaterally. There is no acetabular retroversion. A prominent left inguinal lymph node measures 15 x 11 mm. No other enlarged nodes are seen. The uterus is surgically absent. The bladder is decompressed by a Hanna catheter. A surgical clip is noted in the left lower quadrant. IMPRESSION: 1. Severe compression fracture at T12 with a residual open fracture cleft. This results in mild focal kyphosis and moderate central canal stenosis at T12-L1. 2. Additional central canal stenosis is up to moderate at L4-5. MRI could further assess stenosis if there is persistent concern. 3. No pelvic fractures are identified. 4. Prominent left inguinal lymph node. Correlate for left lower extremity inflammation or other causes. Electronically signed by: Ash Ferguson MD (07/08/2019 4:39 AM) [facility]
--- NOTE | 2019-07-08 04:45 | RAD ---
EXAM: CHEST ONE VIEW. HISTORY: Chest pain, weakness. COMPARISON: None. FINDINGS: A frontal view of the chest is obtained. A nodule in the left upper lobe measures 1.3 cm and likely reflects a calcified granuloma. There are surgical clips in the left base. There are mild airspace opacities in the right perihilar region. Linear opacities in left base most likely indicate atelectasis. There is no pneumothorax or pleural effusion. The heart is not enlarged. There are changes of internal fixation of a right humeral fracture. IMPRESSION: 1. Mild right perihilar infiltrate. 2. 1.3 cm left upper lobe nodule, likely a calcified granuloma. Correlate with older studies to confirm long-term stability. Electronically signed by: Ash Ferguson MD (07/08/2019 4:42 AM) [facility]
--- NOTE | 2019-07-08 04:57 | RAD ---
EXAM: Left femur 2 views. HISTORY: Left femoral pain. COMPARISON: None. FINDINGS: No fractures are identified. There is mildly decreased femoral head/neck offset superolaterally. The joint spaces of the left hip and knee appear maintained for patient age. A Hanna catheter is noted. IMPRESSION: 1. No fracture. Correlate for mild femoroacetabular impingement. Electronically signed by: Ash Ferguson MD (07/08/2019 4:54 AM) [facility]
[2019-07-08 07:29] VITALS: BP 126/79
== END 2019-07-08 08:15 | disposition short-term general hospital (02) ==
LOC: ER 01:16 → MERGE 01:16 → ER 08:15
DX: M25.552 Pain in left hip (principal); M54.5 Low back pain; R91.1 Solitary pulmonary nodule; G20 Parkinson's disease; F03.90 Unspecified dementia, unspecified severity, without behavioral disturbance, psychotic disturbance, mood disturbance, and anxiety; F31.9 Bipolar disorder, unspecified; M19.90 Unspecified osteoarthritis, unspecified site; F41.9 Anxiety disorder, unspecified; Z86.718 Personal history of other venous thrombosis and embolism; Z86.711 Personal history of pulmonary embolism
CPT/HCPCS: 36415; 51702; 70450; 71045; 72131; 72192; 73552; 80048; 80076; 80307; 81001; 82550; 83690; 83735; 83880; 84443; 84484; 85025; 85379; 85610; 85730; 93005; 96374; 99285; J1885; J7120

== ENCOUNTER 2019-07-24 17:39 | Observation (INO) | payer MEDICARE ==
[~2019-07-24] VITALS: Ht 157.5 cm; Wt 51.0 kg
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
--- NOTE | 2019-07-24 17:59 | EKG ---
[address] [address] Test Date: 2019-07-24 Test Time: 17:51:59 Pat Name: ANASTACIA RIVERA Department: Room: Gender: F [employer]her [employer]her: : 1940 Requested By: MARIEL LUGO Order Number: [id number] Reading MD: Herson Clark Measurements Intervals Mclean Rate: 77 P: 39 OK: 192 QRS: -34 QRSD: 74 T: 34 QT: 402 QTc: 457 Interpretive Statements SINUS RHYTHM ABNORMAL LEFT AXIS DEVIATION QRS(T) CONTOUR ABNORMALITY CONSIDER INFERIOR MYOCARDIAL DAMAGE Electronically Signed On 07-25-2019 16:44:06 CDT by Herson Clark
[2019-07-24] MEDS ORDERED: IV NORMAL SALINE 1,000ML 1,000 ML IV ONE (18:00)
[2019-07-24 18:19] LABS: BASO % 0 % (0-3); EOS # 0.3 x10^3/uL (0.0-0.7); EOS % 5 % (0-3); HEMATOCRIT 36.2 % (36.0-47.0); HEMOGLOBIN 12.1 g/dL (12.0-15.5); LYMPH # 1.9 x10^3/uL (1.0-4.8); LYMPH % 31 % (24-48); MEAN CORPUSCULAR HEMOGLOBIN 34 pg (25-35); MEAN CORPUSCULAR HGB CONC 34 g/dL (31-37); MEAN CORPUSCULAR VOLUME 100 fL (79-100); MONO # 0.4 x10^3/uL (0.0-1.1); MONO % 6 % (0-9); NEUT # 3.6 x10^3uL (1.8-7.7); NEUT % 57 % (31-73); PLATELET COUNT 209 x10^3/uL (140-400); RED BLOOD COUNT 3.62 x10^6/uL (3.50-5.40); RED CELL DISTRIBUTION WIDTH 13.8 % (11.5-14.5); WHITE BLOOD COUNT 6.2 x10^3/uL (4.0-11.0)
[2019-07-24 18:22] LABS: CALCIUM 9.3 mg/dL (8.5-10.1); CREATININE 0.9 mg/dL (0.6-1.0); GFR 60.9; POTASSIUM 3.9 mmol/L (3.5-5.1)
[2019-07-24 18:28] LABS: ALBUMIN 3.8 g/dL (3.4-5.0); ALBUMIN/GLOBULIN RATIO 1.1 (1.0-1.7); TOTAL BILIRUBIN 0.6 mg/dL (0.2-1.0); TOTAL PROTEIN 7.3 g/dL (6.4-8.2)
--- NOTE | 2019-07-24 18:36 | RAD ---
Exam: CT head INDICATION: Confusion TECHNIQUE: Sequential axial images through the head were obtained without the administration of IV contrast. Comparisons: None FINDINGS: No focal parenchymal lesion or hemorrhage is identified. There is no midline shift or sulcal effacement. No acute vascular territory infarction is identified. Hernadez-white distinction is preserved. The ventricular system is within normal limits without compression hydrocephalus. The basal cisterns are well maintained. The visualized portions of the paranasal sinuses and mastoid air cells are well-pneumatized. No acute fractures. IMPRESSION: No acute intracranial abnormality. Exposure: One or more of the following in the visualized dose reduction techniques were utilized for this examination: 1. Automated exposure control 2. Adjustment of the MA and/or KV according to patient size Use of iterative of reconstructive technique Electronically signed by: Adrianne Cowan MD (07/24/2019 6:33 PM) [id number]
--- NOTE | 2019-07-24 18:45 | RAD ---
CHEST AP ONLY Clinical Indication: Reason: short of air, confusion / Spl. Instructions: / History: Comparison: AP chest, June 12, 2019. Findings: Tortuous thoracic aorta. Cardiac size is normal. Left upper lung nodule is stable. Surgical clips project over the left heart border, unchanged. There is no acute airspace disease. There is no pneumothorax. No pleural effusion is appreciated. Redemonstrated hardware of the right humerus.. IMPRESSION: No acute cardiopulmonary process. Electronically signed by: Basim Rushing MD (07/24/2019 6:42 PM) [facility]
[2019-07-24 19:44] LABS: BILIRUBIN,URINE NEG (NEG); CLARITY,URINE CLEAR; COLOR,URINE YELLOW; GLUCOSE,URINE NEG (NEG); NITRITE,URINE NEG (NEG); UROBILINOGEN,URINE 0.2 mg/dL (0.2 mg/dL)
[2019-07-24 19:45] LABS: BACTERIA,URINE FEW /HPF (0-FEW); SQUAMOUS EPITHELIAL CELL,UR MOD /LPF
[2019-07-24] MEDS ORDERED: ONDANSETRON PF 4 MG/2 ML VIAL. IVP PRN (20:30)
[2019-07-24] MEDS ORDERED: cefTRIAXone SODIUM 1 GM VIAL ONE ×2 (21:47)
[2019-07-24] MEDS ORDERED: IV NORMAL SALINE 50ML 50 ML ONE (21:47)
[2019-07-24 22:45] VITALS: BP 170/101
[2019-07-24] MEDS ORDERED: ZOLPIDEM 5 MG TABLET. PO PRN (23:45)
[2019-07-24] MEDS: METOPROLOL TART IMMED RELEASE 50 MG TABLET PO SCH (23:52)
[2019-07-25 08:25] VITALS: BP 142/92
[2019-07-25 08:30] VITALS: BP 142/92
[2019-07-25] MEDS: METOPROLOL TART IMMED RELEASE 50 MG TABLET PO SCH (08:30)
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
== END 2019-07-25 09:40 | disposition home or self-care (01) ==
LOC: ER 17:39 → 1 SOUTH 20:41 → INTOOBSV 20:41
PROVIDERS: ADMIT Hospitalist; ATTEND Hospitalist
DX: R41.0 Disorientation, unspecified (principal); F31.9 Bipolar disorder, unspecified; F41.8 Other specified anxiety disorders; G20 Parkinson's disease; Z91.14 Patient's other noncompliance with medication regimen; N39.0 Urinary tract infection, site not specified
CPT/HCPCS: 36415; 70450; 71045; 80053; 81001; 84484; 85025; 93005; 96361; 96365; 99285; G0378; G0379; J0696; J7030